=== PATIENT | female | born 1950 | race Caucasian/White ===

== ENCOUNTER → 2023-05-07 06:37 | Day surgery (SDC) | payer MEDICARE, BC, SELFPAY | LOC: GI 06:37 | PROVIDERS: ATTENDING PHYSICIAN Internal Medicine; FAMILY PHYSICIAN Physician Assistant Medical | DX: R10.13 Epigastric pain (principal); K31.7 Polyp of stomach and duodenum; K31.89 Other diseases of stomach and duodenum; Q43.8 Other specified congenital malformations of intestine | CPT/HCPCS: 43239; 88305; 88342 ==

== ENCOUNTER 2023-05-07 19:55 | Emergency (ER) | payer MEDICARE, BC, SELFPAY ==
[2023-05-07 20:00] VITALS: BP 139/91
[2023-05-07 21:58] VITALS: BP 140/80
[2023-05-07 22:19] LABS: % Basophils 1.4 % (0-2); % Eosinophils 3.3 % (0-6); % Immature Granulocytes 0.4 % (0-0.5); % Neutrophils 67.9 % (42.2-75.2); Absolute Basophils 0.2 10^3/uL (0-0.2); Absolute Eosinophils 0.4 10^3/uL (0-0.7); Absolute Lymphocytes 2.2 10^3/uL (1.2-3.4); Absolute Monocytes 0.8 10^3/uL (0.1-0.6); Absolute Neutrophils 7.4 10^3/uL (1.4-6.5); Hematocrit 39.4 % (37.0-47.0); Mean Corp Hgb Conc. 35.5 g/dL (33.0-37.0); Mean Corpuscular Hgb 29.5 pg (27.0-31.0); Mean Corpuscular Volume 82.9 fL (81.0-99.0); Mean Platelet Volume 9.4 fL (7.4-10.4); Nucleated Red Blood Cells % 0 %; Platelet Count 335 10^3/uL (130-400); Red Blood Cell Count 4.75 10^6/uL (4.20-5.40); Red Cell Dist. Width 13.4 % (11.5-14.5)
[2023-05-07 22:32] LABS: Lactic Acid 1.5 mmol/L (0.7-2.0)
[2023-05-07 22:34] LABS: ALT (SGPT) 20 U/L (0-35); AST (SGOT) 27 U/L (14-36); Alkaline Phosphatase 130 U/L (38-126); Blood Urea Nitrogen 21 mg/dl (7-17); Calcium 9.6 mg/dl (8.4-10.2); Carbon Dioxide 29 mmol/L (22-30); Chloride 103 mmol/L (98-107); Glucose 111 mg/dl (70-99); Potassium 3.3 mmol/L (3.5-5.1); Sodium 141 mmol/L (135-145); Total Bilirubin 1.2 mg/dl (0.2-1.3); eGFR > 60.00
[2023-05-07 22:35] LABS: Lipase 67 U/L (23-300)
[2023-05-07 22:43] LABS: Troponin I < 0.012 ng/ml
[2023-05-07 23:00] VITALS: BMI 43.4
--- NOTE | 2023-05-07 23:01 | ED.GENMED ---
History of Present Illness
<MANOJ Ritchie - Last Filed: 05/08/23 02:31>
General
Chief Complaint: Abdominal Pain
Source: patient
Exam Limitations: none
Time Seen by Provider: 05/07/23 22:33
Nursing documentation reviewed up to this point in time: agreed with
Travel History
Have you had any contact with someone who has COVID-19?: No
Do you have any symptoms of coronavirus? Fever > 100 degrees, chills, cough, shortness of breath, sore throat, loss of taste or smell, muscle aches, or headache?: No
History of Present Illness
History of Present Illness:
This is a 73 year old female with a PMH of gastritis, diverticulitis, GERD, HTN, and HLD, who presents to the ED c/o abdominal pain and bloating x weeks. Pt states she had an upper endoscopy this afternoon where some gastric polyps were biopsied.
She called her doctor post procedure who advised her that the pain was unlikely due to the procedure, but patient should go to the ER since the pain is so bothersome. Pt states this pain has been present for weeks and feels as though her 'stomach is
all blown up.' She constantly feels nauseous and bloated and describes the pain as 'gnawing.' She notes that 5 days ago, she also developed associated upper back pain. Her pain feels better when she is walking. Pt also adds that she has been having
increasingly 'smelly bowel movements'. The smell has become unbearable to her. She denies any fever, chills, vomiting, CP, SOB, lightheadedness, dizziness, melena, diarrhea, constipation, or greasy/fatty stools.
Pt denies any alcohol, drug or tobacco use.
Past History
<MANOJ Ritchie - Last Filed: 05/08/23 02:31>
Past History
ED Past Medical History: GERD, Hypothyroidism (Hashimotos), Psychiatric (depression) and Other (Diverticulitis, polyps, interstitial cystitis, kidney stones, Nathaniel's thyroiditis, hyperparathyroid); Negative IDDM or NIDDM
ED Past Surgical History: Cholecystectomy, Gynecological (Hysterectomy) and Other (bilateral milk duct removal of the breasts); Negative Appendectomy
Patient has exhibited threatening behavior?: No
Social History
Tobacco: Non-smoker
Alcohol: None
Drug: None
Personal:
Living: with family
Employment: Employed
Family History
Family History: Hypertension
Review of Systems
<MANOJ Ritchie - Last Filed: 05/08/23 02:31>
Review of Systems
Allergies reviewed?: Yes
All Other Systems: ROS reviewed and negative except as documented in HPI and ROS
Constitutional: Reports no symptoms; Denies fever or chills
EENT: Reports no symptoms
Respiratory: Reports no symptoms
Cardiac: Reports no symptoms; Denies chest pain
ABD/GI: Reports abdominal pain, nausea and other (abdominal bloating, upper back pain, malodorous stools); Denies vomiting, diarrhea, constipated or bloody stools
: Reports no symptoms
Musculoskeletal: Reports no symptoms
Skin: Reports no symptoms
Neurological: Reports no symptoms; Denies dizzy
Psychiatric: Reports no symptoms
Phy Exam
<MANOJ Ritchie - Last Filed: 05/08/23 02:31>
General Physical Exam
General Presentation: moderate distress (patient is actively pacing and changing positions to obtain comfort. )
General age: appears stated age
General Skin: warm and dry
General Habitus: obese
General Mental: alert
General Hydration: appears well hydrated
ENT Exam
ENT Exam: pharynx normal, normocephalic and swallowing well
Eye Exam
Eye Exam: PERRL
Cardiovascular Exam
Cardiovascular Exam: no edema, no murmur, normal peripheral pulses and tachycardia
Heart Sounds: normal
Pulmonary Exam
Pulmonary Exam: lungs clear, no respiratory distress, no rales, no crackles, no rhonchi, no wheezing and no cough
Oxygen Status: room air
Gastrointestinal Exam
Gastrointestinal Exam: soft, non distended, abnormal bowel sounds (hypoactive), tender (epigastric tenderness to palpation) and other (patient actively belching. no rebound, guarding or rigidity. No McBurney's point tenderness. )
Auscultation of Abdomen: hypoactive
Neurological Exam
Neurological Exam: alert and oriented x3
Musculoskeletal Exam
Musculoskeletal Exam: full ROM and no edema
Skin Exam
Skin Exam: normal color and warm/dry
Psychiatric Exam
Psychiatric Exam: agitated
Course
<MANOJ Ritchie - Last Filed: 05/08/23 02:31>
Orders/Labs/Results
Orders:
Orders
05/07/23 20:05
Electrocardiogram (*1) Urgent
Reason for Study: Abdominal Pain
EKG- Treatment ONCE
IV Insert/Care/Rem.- Treatment PRN
05/07/23 20:18
Complete Blood Count/With Diff Urgent
Comprehensive Metabolic Panel Urgent
Lipase Urgent
05/07/23 22:11
Lactic Acid Urgent
Troponin I Urgent
05/07/23 23:45
Iohexol [Omnipaque] 50 ml .ROUTE .STK-MED ONE
05/07/23 23:47
Iohexol [Omnipaque] See Protocol PO NOW STA
05/08/23 00:01
Mag Hydrox/Al Hydrox/Simeth [Maalox] 30 ml Phenobarb/Hyoscy/Atropine/Scop [] 10 ml Viscous Lidocaine 2% [Xylocaine Viscous Cup] 10 ml PO NOW
05/08/23 00:12
Mag Hydrox/Al Hydrox/Simeth [Maalox] 30 ml .ROUTE .STK-MED ONE
Phenobarb/Hyoscy/Atropine/Scop [] 10 ml .ROUTE .STK-MED ONE
Viscous Lidocaine 2% [Xylocaine Viscous Cup] 15 ml .ROUTE .STK-MED ONE
05/08/23 01:16
Sucralfate Suspension [Carafate Suspension] 1 gm PO NOW STA
05/08/23 01:30
CT Abd/pel W Iv And Oral Contr Urgent
Reason For Exam: abdominal pain and bloating
Abnormal Lab Results
05/07/23
20:18
WBC 11.0 H 10^3/uL
(4.8-10.8)
Absolute Neuts (auto) 7.4 H 10^3/uL
(1.4-6.5)
Absolute Monos (auto) 0.8 H 10^3/uL
(0.1-0.6)
Lymphocytes % 20.0 L %
(20.5-51.1)
Potassium 3.3 L mmol/L
(3.5-5.1)
BUN 21 H mg/dl
(7-17)
Glucose 111 H mg/dl
(70-99)
Alkaline Phosphatase 130 H U/L
(38-126)
05/07/23 20:18
05/07/23 20:18
Vital Signs
Initial and Last Documented VS:
Initial Vital Signs
Temp Pulse Resp BP Pulse Ox
97.7 F 107 22 139/91 99
05/07/23 20:00 05/07/23 20:00 05/07/23 20:00 05/07/23 20:00 05/07/23 20:00
Last Documented Vital Signs
Temp Pulse Resp BP Pulse Ox
97.7 F 88 20 146/86 96
05/07/23 20:00 05/08/23 02:16 05/08/23 02:16 05/08/23 02:16 05/08/23 02:16
<DO Jamilah Moraes Last Filed: 05/08/23 00:10>
Orders/Labs/Results
Orders:
Orders
05/07/23 20:05
Electrocardiogram (*1) Urgent
Reason for Study: Abdominal Pain
EKG- Treatment ONCE
IV Insert/Care/Rem.- Treatment PRN
05/07/23 20:18
Complete Blood Count/With Diff Urgent
Comprehensive Metabolic Panel Urgent
Lipase Urgent
05/07/23 22:11
Lactic Acid Urgent
Troponin I Urgent
05/07/23 23:45
Iohexol [Omnipaque] 50 ml .ROUTE .STK-MED ONE
05/07/23 23:47
Iohexol [Omnipaque] See Protocol PO NOW STA
05/08/23 00:01
Mag Hydrox/Al Hydrox/Simeth [Maalox] 30 ml Phenobarb/Hyoscy/Atropine/Scop [] 10 ml Viscous Lidocaine 2% [Xylocaine Viscous Cup] 10 ml PO NOW
05/08/23 00:12
Mag Hydrox/Al Hydrox/Simeth [Maalox] 30 ml .ROUTE .STK-MED ONE
Phenobarb/Hyoscy/Atropine/Scop [] 10 ml .ROUTE .STK-MED ONE
Viscous Lidocaine 2% [Xylocaine Viscous Cup] 15 ml .ROUTE .STK-MED ONE
05/08/23 01:16
Sucralfate Suspension [Carafate Suspension] 1 gm PO NOW STA
05/08/23 01:30
CT Abd/pel W Iv And Oral Contr Urgent
Reason For Exam: abdominal pain and bloating
Abnormal Lab Results
05/07/23
20:18
WBC 11.0 H 10^3/uL
(4.8-10.8)
Absolute Neuts (auto) 7.4 H 10^3/uL
(1.4-6.5)
Absolute Monos (auto) 0.8 H 10^3/uL
(0.1-0.6)
Lymphocytes % 20.0 L %
(20.5-51.1)
Potassium 3.3 L mmol/L
(3.5-5.1)
BUN 21 H mg/dl
(7-17)
Glucose 111 H mg/dl
(70-99)
Alkaline Phosphatase 130 H U/L
(38-126)
05/07/23 20:18
05/07/23 20:18
Vital Signs
Initial and Last Documented VS:
Initial Vital Signs
Temp Pulse Resp BP Pulse Ox
97.7 F 107 22 139/91 99
05/07/23 20:00 05/07/23 20:00 05/07/23 20:00 05/07/23 20:00 05/07/23 20:00
Last Documented Vital Signs
Temp Pulse Resp BP Pulse Ox
97.7 F 88 20 146/86 96
05/07/23 20:00 05/08/23 02:16 05/08/23 02:16 05/08/23 02:16 05/08/23 02:16
<MANOJ Ritchie - Last Filed: 05/08/23 02:31>
*Critical Care Note
Total Time (30-74mins, 75-104mins- exclusive of procedures): Not Applicable
ED Attending Note
<MANOJ Ritchie - Last Filed: 05/08/23 02:31>
-
Portions of this chart may have been created with voice recognition software.� Occasional wrong word or��sound alike� substitutions may have occurred due to the inherent limitations of voice recognition software.
<Solo Kramer DO - Last Filed: 05/08/23 00:10>
ED Attending Note
Patient seen and examined by attending physician: Yes
I performed the substantive portion of visit, reviewed & personally made and approve the management plan that is documented in note by myself or KARTHIKEYAN.: Yes
ED Attending Note:
This a pleasant 73-year-old female that presents with upper abdominal pain that has been present for the last few months. Patient was seen by GI today and had an upper endoscopy. She was diagnosed with polyps and she had several biopsies. She
called her tank car mechanic who advised her to come to the ER because the pain was described to be intense. Pattern Setter does not feel that the pain is due to today's procedure. Patient seems to agree since she has had similar pain for
months. Patient states that she has been taken off proton pump inhibitors as her tank car mechanic states that they have been contributing to the polyp growth. Patient denies fever, chills, chest pain, shortness of breath. Patient was seen in
conjunction with the PA student. I have reviewed and agree with the history and treatment plan presented. On my independent physical exam, patient is awake, alert, and oriented x3, minimal acute distress. No respiratory distress. Lungs are clear
to auscultation. Heart is regular rate and rhythm.
Vital signs are stable. Patient not hypoxic
Nursing note reviewed. I agree with nursing documentation up to this point in time.
Home Meds and allergies reviewed.
NUMBER AND COMPLEXITY OF PROBLEMS ADDRESSED AT THE ENCOUNTER
� Chronic conditions affecting care: Hypertension, hyperlipidemia, diverticulitis, GERD, Nathaniel's thyroiditis, uterine fibroids, renal calculi, GI bleeds,
� Acute Exacerbation and/or Progression of Chronic Illness: GERD
� Differential Diagnosis includes: GERD, DOCA lithiasis, gastritis, GI ulceration
AMOUNT AND/OR COMPLEXITY OF DATA TO BE REVIEWED AND ANALYZED
I performed an independent evaluation of the following and my interpretation is:
EKG: EKG shows sinus tachycardia rate of 101. First-degree AV block present with a FL interval of 214 ms. Left axis deviation. When compared with previous EKG dated August 15, 2022, this shows improvement.
CT:
X-rays:
Ultrasound:
Laboratory Studies: White blood cell count 11.0, lactic acid of 1.5, troponin of less than 0.012, lipase of 67
Other:
Review of other/old records: Endoscopy procedure from 05/07/2023:
Impression:� � � - Normal esophagus.
�� � � � � � � � � � � - Bile gastritis. Biopsied.
�� � � � � � � � � � � - Multiple fundic gland polyps. Biopsied.
�� � � � � � � � � � � - Nodules found in the duodenum. Biopsied.
�� � � � � � � � � � � - Random duodenal biopsies.
Recommendation:�
� - Discharge patient to home (ambulatory).
�� � � � � � � � � � � - Await pathology results.
�� � � � � � � � � � � � � � � � � � � � � � � � � � � � � � � � �
Clinical information was obtained by an independent historian:
Prescriptions/Medications Considered but not given:
Further testing considered but not performed:
RISK OF COMPLICATIONS AND/OR MORBIDITY OR MORTALITY OF PATIENT MANAGEMENT
Social determinants of health affecting care: Good Social Support
Discussion with other providers:
Escalation of care including admission/observation vs risk of discharge considered:
CRITICAL CARE NOTE:
Total Time (exclusive of procedures):
Update:
Discharge Plan
Departure
Patient Disposition: Home (Routine Discharge)
Date of Disposition: 05/08/23
Time of Disposition: 02:24
Patient with high blood pressure during this ER visit?: Yes
Discharge Problem:
Abdominal pain
Instructions: Abdominal Pain, BLOOD PRESSURE
Prescriptions:
No Action
alprazolam 1 MG tablet
1 mg PO HS
levothyroxine 88 MCG tablet
88 mcg PO DAILY
cholecalciferol (vitamin D3) 2,000 UNITS tablet
2,000 units PO DAILY
acetaminophen 325 MG tablet
650 mg PO Q6HPRN PRN (Reason: mild pain/ fever>100.5F) 0RF
hydrochlorothiazide 25 MG tablet
25 mg PO DAILY
atorvastatin 40 MG tablet
40 mg PO QPM
famotidine 40 mg tablet
40 mg PO DAILY PRN (Reason: HEARTBURN)
losartan 100 mg tablet
100 mg PO DAILY
Referrals:
[facility] [Provider Group] - Call in 1-3 days for appt
Lisa Fernandez PA-C [Family Provider] -
Activity Restrictions/Additional Instructions:
Please take your Carafate as prescribed by gastroenterology
It was a pleasure meeting you and taking part in your care. We hope for your continued healing and wellness.
Please read discharge instructions in their entirety. However, they are for general education and may not describe your exact diagnosis at discharge. Information on your ER visit and medical conditions were discussed with you along with appropriate
follow up information...
If indicated, please take your medications as instructed and indicated on discharge paperwork.
Please schedule a follow up appointment as directed. Call to schedule an appointment
Please return to the emergency department with ANY change in, persisting, or worsening of symptoms. If any of your symptoms do not improve, or persist, or become more severe within 6-12 hours, please return to the emergency department for further
care.
Please return to the emergency department if you develop a headache, neck pain/stiffness, fever greater than 100.4F, chest pain, shortness of breath, persistent nausea, vomiting, slurred speech, difficulty walking, numbness/tingling, weakness, signs
of infection or any other symptoms that are worrisome to you.
If you have any questions or concerns please do not hesitate to call the Hospital at or E-mail me directly at [email or web address]
Interventions
Interventions:
*Risk Screen - Suicide Last Done: 05/07/23 20:00
*General Assessment Last Done: 05/07/23 20:00
*Neglect/Abuse Screening Last Done: 05/07/23 20:00
*ED COVID-19 Vaccine History Last Done: 05/07/23 20:00
MS-Rtfbiw-Zskoyvujja Assessment Last Done: 05/07/23 23:06
[2023-05-07] MEDS: OMNIPAQUE 50 ML PO (23:47)
[2023-05-08] MEDS: MAALOX 55 PO (00:13)
[2023-05-08 00:55] VITALS: BP 132/78
[2023-05-08] MEDS: CARAFATE SUSPENSION 1 GM PO (02:11)
[2023-05-08 02:16] VITALS: BP 146/86
== END 2023-05-08 03:21 | disposition home or self-care (01) ==
LOC: EMR 19:55
PROVIDERS: Emergency Medicine; EMERGENCY PHYSICIAN Student in an Organized Health Care Education/Training Program; FAMILY PHYSICIAN Physician Assistant Medical
DX: R10.10 Upper abdominal pain, unspecified (principal); I10 Essential (primary) hypertension; K29.70 Gastritis, unspecified, without bleeding; K21.9 Gastro-esophageal reflux disease without esophagitis; E78.5 Hyperlipidemia, unspecified
CPT/HCPCS: 99285; 88305; 74177; 80053; 83605; 83690; 84484; 85025; 88342; 93005; Q9967

== ENCOUNTER → 2023-06-09 12:33 | Outpatient (REF) | payer MEDICARE, BC, SELFPAY ==
[2023-06-09 14:46] LABS: % Basophils 1.3 % (0-2); % Immature Granulocytes 0.6 % (0-0.5); % Lymphocytes 18.9 % (20.5-51.1); % Monocytes 5.8 % (1.7-9.3); % Neutrophils 69.4 % (42.2-75.2); Absolute Basophils 0.1 10^3/uL (0-0.2); Absolute Eosinophils 0.4 10^3/uL (0-0.7); Absolute Immature Granulocytes 0.1 10^3/uL (0-0.05); Absolute Lymphocytes 1.8 10^3/uL (1.2-3.4); Absolute Monocytes 0.6 10^3/uL (0.1-0.6); Absolute Neutrophils 6.7 10^3/uL (1.4-6.5); Hematocrit 37.1 % (37.0-47.0); Hemoglobin 12.5 g/dL (12.0-16.0); Mean Corp Hgb Conc. 33.7 g/dL (33.0-37.0); Mean Corpuscular Volume 86.1 fL (81.0-99.0); Mean Platelet Volume 10.1 fL (7.4-10.4); Nucleated Red Blood Cells % 0 %; Platelet Count 297 10^3/uL (130-400); Red Blood Cell Count 4.31 10^6/uL (4.20-5.40); Red Cell Dist. Width 13.7 % (11.5-14.5); White Blood Cell Count 9.6 10^3/uL (4.8-10.8)
[2023-06-09 15:15] LABS: Blood Urea Nitrogen 15 mg/dl (7-17); Calcium 9.3 mg/dl (8.4-10.2); Carbon Dioxide 26 mmol/L (22-30); Chloride 106 mmol/L (98-107); Glucose 98 mg/dl (70-99); Potassium 3.7 mmol/L (3.5-5.1); Sodium 140 mmol/L (135-145); eGFR > 60.00
== END ==
LOC: WDC 12:33
PROVIDERS: ATTENDING PHYSICIAN Internal Medicine
DX: Z12.31 Encounter for screening mammogram for malignant neoplasm of breast (principal); I10 Essential (primary) hypertension
CPT/HCPCS: 36415; 77063; 77067; 80048; 85025

== ENCOUNTER 2023-09-09 11:41 | Emergency (ER) | payer MEDICARE, BC, SELFPAY ==
[2023-09-09 11:52] VITALS: BP 143/84
[2023-09-09] MEDS: TORADOL 15 MG IV (13:07)
[2023-09-09] MEDS: NSS 500 IV (13:08)
[2023-09-09 13:24] LABS: % Basophils 1.4 % (0-2); % Immature Granulocytes 0.7 % (0-0.5); % Lymphocytes 18.3 % (20.5-51.1); % Monocytes 7.4 % (1.7-9.3); % Neutrophils 69.2 % (42.2-75.2); Absolute Basophils 0.2 10^3/uL (0-0.2); Absolute Eosinophils 0.3 10^3/uL (0-0.7); Absolute Immature Granulocytes 0.1 10^3/uL (0-0.05); Absolute Lymphocytes 1.9 10^3/uL (1.2-3.4); Absolute Monocytes 0.8 10^3/uL (0.1-0.6); Absolute Neutrophils 7.3 10^3/uL (1.4-6.5); Hematocrit 40.6 % (37.0-47.0); Mean Corp Hgb Conc. 34.5 g/dL (33.0-37.0); Mean Corpuscular Hgb 29.5 pg (27.0-31.0); Mean Corpuscular Volume 85.5 fL (81.0-99.0); Mean Platelet Volume 9.4 fL (7.4-10.4); Nucleated Red Blood Cells % 0 %; Platelet Count 318 10^3/uL (130-400); Red Blood Cell Count 4.75 10^6/uL (4.20-5.40); Red Cell Dist. Width 14.5 % (11.5-14.5); White Blood Cell Count 10.6 10^3/uL (4.8-10.8)
[2023-09-09 13:44] LABS: Urine Albumin Negative (Neg - Trace); Urine Bilirubin Negative (Negative); Urine Character Clear (Clear); Urine Color Yellow; Urine Glucose Negative (Negative); Urine Ketone Negative (Negative); Urine Leukocyte Negative (Negative); Urine Nitrite Negative (Negative); Urine Occult Blood Negative (Negative); Urine Specific Gravity 1.005 (<1.030); Urine Urobilinogen Negative (Neg - 1+)
[2023-09-09 13:44] LABS: ALT (SGPT) 21 U/L (0-35); AST (SGOT) 29 U/L (14-36); Albumin 4.2 g/dl (3.5-5.0); Alkaline Phosphatase 108 U/L (38-126); Blood Urea Nitrogen 16 mg/dl (7-17); Calcium 9.9 mg/dl (8.4-10.2); Carbon Dioxide 30 mmol/L (22-30); Chloride 103 mmol/L (98-107); Glucose 86 mg/dl (70-99); Lipase 125 U/L (23-300); Potassium 4.1 mmol/L (3.5-5.1); Sodium 139 mmol/L (135-145); Total Bilirubin 0.9 mg/dl (0.2-1.3); Total Protein 6.8 g/dl (6.3-8.2); eGFR > 60.00
--- NOTE | 2023-09-09 16:18 | ED.GENMED ---
History of Present Illness
General
Chief Complaint: Abdominal Symptoms
Source: patient
Exam Limitations: none
Time Seen by Provider: 09/09/23 12:15
Nursing documentation reviewed up to this point in time: agreed with
History of Present Illness
History of Present Illness:
73-year-old female with past medical history of hypertension hyperlipidemia, diverticulitis presenting to the emergency department today with concerns of ongoing discomfort to the left lower quadrant of the abdomen. Symptoms for roughly 2 weeks
took antibiotics for possible diverticulitis that concluded 3 days ago. Does have a history of diverticulitis. Denies any fevers nausea vomiting or additional concern otherwise.
Past History
Past History
ED Past Medical History: GERD, Hypothyroidism (Hashimotos), Psychiatric (depression) and Other (Diverticulitis, polyps, interstitial cystitis, kidney stones, Nathaniel's thyroiditis, hyperparathyroid); Negative IDDM or NIDDM
ED Past Surgical History: Cholecystectomy, Gynecological (Hysterectomy) and Other (bilateral milk duct removal of the breasts); Negative Appendectomy
Patient has exhibited threatening behavior?: No
Social History
Tobacco: Non-smoker
Alcohol: None
Drug: None
Personal:
Living: with family
Employment: Employed
Family History
Family History: Hypertension
Review of Systems
Review of Systems
Allergies reviewed?: Yes
All Other Systems: ROS reviewed and negative except as documented in HPI and ROS
Phy Exam
Physical Exam
Physical Exam:
GENERAL: Alert , in no apparent distress
EYE: pupils equal and reactive
NECK: Supple, no significant adenopathy.
ENT: o/p clr, mmm.
CARDIAC: Regular rate and rhythm .
LUNGS: Clear breath sounds bilaterally, no acute respiratory distress, no wheezes/rales/rhonchi
ABDOMEN: Mild reproducible discomfort to the left lower quadrant otherwise soft, without focal tenderness, no r/g, no cvat
NEUROLOGICAL: Alert and oriented, no focal neuro deficits
SKIN: Warm and dry, skin intact.
MUSCULOSKELETAL: No edema, well perfused.
PSYCH: Normal and appropriate interaction.
Course
Orders/Labs/Results
Orders:
Orders
09/09/23 12:38
CT Abd/Pel (IV only)-DH only Urgent
Comment:
Reason For Exam: llq pain hx of diverticulitis
0.9% Sodium Chloride 500 ml [Nss] 500 ml IV BOLUS
Ketorolac [Toradol] 15 mg IV NOW STA
09/09/23 13:11
Complete Blood Count/With Diff Urgent
Comprehensive Metabolic Panel Urgent
Lipase Urgent
09/09/23 13:13
Urinalysis Reflex To Culture Urgent
Date Specimen was Collected: 09/09/23
Time Specimen was Collected: 13:12
Abnormal Lab Results
09/09/23
13:11
Abs Immat Gran (auto) 0.1 H 10^3/uL
(0-0.05)
Absolute Neuts (auto) 7.3 H 10^3/uL
(1.4-6.5)
Absolute Monos (auto) 0.8 H 10^3/uL
(0.1-0.6)
Immature Gran % 0.7 H %
(0-0.5)
Lymphocytes % 18.3 L %
(20.5-51.1)
Creatinine 0.5 L mg/dL
(0.6-1.0)
09/09/23 13:11
09/09/23 13:11
Vital Signs
Initial and Last Documented VS:
Initial Vital Signs
Temp Pulse Resp BP Pulse Ox
97.5 F 85 18 143/84 96
09/09/23 11:52 09/09/23 11:52 09/09/23 11:52 09/09/23 11:52 09/09/23 11:52
Last Documented Vital Signs
Temp Pulse Resp BP Pulse Ox
97.5 F 85 18 143/84 96
09/09/23 11:52 09/09/23 11:52 09/09/23 11:52 09/09/23 11:52 09/09/23 11:52
MDM/Problems Addressed
MDM/Problems Addressed:
73-year-old female presenting to the emergency department today with concerns of ongoing lower abdominal pain. Initially presumed to be diverticulitis and took Levaquin and Flagyl. Here afebrile generally well-appearing no acute distress. Does
have minimal discomfort to palpation to the left lower quadrant. Considering this CT scan was obtained that did not show any emergent process labs unremarkable no white count normal urinalysis. Patient may have some functional bowel discomfort was
given Bentyl and advised for close GI follow-up. Return precautions given.
*Critical Care Note
Total Time (30-74mins, 75-104mins- exclusive of procedures): Not Applicable
ED Attending Note
-
Portions of this chart may have been created with voice recognition software.� Occasional wrong word or��sound alike� substitutions may have occurred due to the inherent limitations of voice recognition software.
Discharge Plan
Departure
Patient Disposition: Home (Routine Discharge)
Date of Disposition: 09/09/23
Time of Disposition: 16:18
Patient with high blood pressure during this ER visit?: No
Condition: Good
Covid-19: Not Applicable
Discharge Problem:
Abdominal pain
Instructions: Abdominal Pain
Prescriptions:
New
dicyclomine 10 mg capsule
10 mg PO QID PRN (Reason: abdominal pain) Qty: 10 0RF
No Action
alprazolam 1 MG tablet
1 mg PO HS
levothyroxine 88 MCG tablet
88 mcg PO DAILY
cholecalciferol (vitamin D3) 2,000 UNITS tablet
2,000 units PO DAILY
acetaminophen 325 MG tablet
650 mg PO Q6HPRN PRN (Reason: mild pain/ fever>100.5F) 0RF
hydrochlorothiazide 25 MG tablet
25 mg PO DAILY
atorvastatin 40 MG tablet
40 mg PO QPM
famotidine 40 mg tablet
40 mg PO DAILY PRN (Reason: HEARTBURN)
losartan 100 mg tablet
100 mg PO DAILY
Referrals:
Kamlesh Brown MD [Family Provider] -
Activity Restrictions/Additional Instructions:
You came to the emergency department today with concerns of abdominal discomfort. This could be secondary to recent inflammation. Please take Bentyl 1 tab every 4-6 hours as needed. Please stay hydrated. He can also take a fiber supplement as
well as Colace daily to help with symptoms. Please follow closely with your GI doctor. Return to the emergency department for any worsening, new or concerning symptoms.
Interventions
Interventions:
*Risk Screen - Suicide Last Done: 09/09/23 11:52
*Neglect/Abuse Screening Last Done: 09/09/23 11:52
ED- Fall Risk Assessment Last Done: 09/09/23 13:43
*ED COVID-19 Vaccine History Last Done: 09/09/23 11:52
GD-Ulceqb-Uiosnsmcqp Assessment Last Done: 09/09/23 13:43
Discharge Date and Time
Print Language: FILIPINO
[2023-09-09 16:37] VITALS: BP 137/82
== END 2023-09-09 16:39 | disposition home or self-care (01) ==
LOC: EMR 11:41
PROVIDERS: Physician Assistant; EMERGENCY PHYSICIAN Emergency Medicine; FAMILY PHYSICIAN Internal Medicine
DX: R10.30 Lower abdominal pain, unspecified (principal); I10 Essential (primary) hypertension; E78.5 Hyperlipidemia, unspecified; K57.30 Diverticulosis of large intestine without perforation or abscess without bleeding
CPT/HCPCS: 99285; 96374; 74177; 80053; 81003; 83690; 85025; Q9967

== ENCOUNTER → 2023-09-16 08:02 | Outpatient (REF) | payer MEDICARE, BC, SELFPAY | LOC: RAD 08:02 | PROVIDERS: ATTENDING PHYSICIAN Internal Medicine Gastroenterology; FAMILY PHYSICIAN Physician Assistant Medical | DX: K59.01 Slow transit constipation (principal) | CPT/HCPCS: 74018 ==

== ENCOUNTER 2023-09-21 22:57 | Inpatient (IN) | payer MEDICARE, BC, SELFPAY ==
[2023-09-21 19:20] VITALS: BP 143/97
[2023-09-21 20:14] LABS: % Basophils 0.8 % (0-2); % Eosinophils 1.7 % (0-6); % Immature Granulocytes 0.8 % (0-0.5); % Lymphocytes 10.3 % (20.5-51.1); % Monocytes 6.4 % (1.7-9.3); Absolute Basophils 0.1 10^3/uL (0-0.2); Absolute Eosinophils 0.2 10^3/uL (0-0.7); Absolute Immature Granulocytes 0.1 10^3/uL (0-0.05); Absolute Monocytes 0.6 10^3/uL (0.1-0.6); Absolute Neutrophils 7.6 10^3/uL (1.4-6.5); Hematocrit 41.9 % (37.0-47.0); Hemoglobin 14.6 g/dL (12.0-16.0); Mean Corp Hgb Conc. 34.8 g/dL (33.0-37.0); Mean Corpuscular Hgb 29.3 pg (27.0-31.0); Mean Corpuscular Volume 84.1 fL (81.0-99.0); Nucleated Red Blood Cells % 0 %; Platelet Count 293 10^3/uL (130-400); Red Blood Cell Count 4.98 10^6/uL (4.20-5.40); Red Cell Dist. Width 14.6 % (11.5-14.5); White Blood Cell Count 9.5 10^3/uL (4.8-10.8)
[2023-09-21 20:57] LABS: Blood Urea Nitrogen 24 mg/dl (7-17); Calcium 9.2 mg/dl (8.4-10.2); Carbon Dioxide 22 mmol/L (22-30); Chloride 103 mmol/L (98-107); Glucose 109 mg/dl (70-99); Lipase 38 U/L (23-300); Sodium 134 mmol/L (135-145); eGFR > 60.00
[2023-09-21 21:43] LABS: Potassium 3.5 mmol/L (3.5-5.1)
[2023-09-21] MEDS: NSS 1000 IV (21:57)
--- NOTE | 2023-09-21 22:05 | ED.GENMED ---
History of Present Illness
General
Chief Complaint: Abdominal Symptoms
Source: patient and physician
Time Seen by Provider: 09/21/23 21:07
History of Present Illness
History of Present Illness:
73-year-old female with past medical history of hypertension, hyperlipidemia, GERD, recently diagnosed diverticulitis, history of C. difficile colitis presenting to the emergency department at request of GI for evaluation of 24 hours of severe
watery diarrhea with patient stating she has had at least 60 episodes of diarrhea today. She notes that since getting to the hospital she has at least had 4 episodes and describes it to be watery, malodorous and similar to when she had C. difficile
in the past. Patient had been on Levaquin initially for her diverticulitis but states due to nausea and vomiting this was switched to ciprofloxacin and Flagyl. She finished this reportedly 1 week ago. She denies any fevers, chills, rigors, known
sick contacts or recent travel. She notes some lower abdominal cramping. No other concerns at this time.
Past History
Past History
ED Past Medical History: GERD, HTN, Hypercholesterolemia, Hypothyroidism ([place]), Psychiatric (depression) and Other (Diverticulitis, polyps, interstitial cystitis, kidney stones, Nathaniel's thyroiditis, hyperparathyroid); Negative IDDM or
NIDDM
ED Past Surgical History: Cholecystectomy, Gynecological (Hysterectomy) and Other (bilateral milk duct removal of the breasts); Negative Appendectomy
Patient has exhibited threatening behavior?: No
Social History
Tobacco: Non-smoker
Alcohol: None
Drug: None
Personal:
Living: with family
Employment: Employed
Family History
Family History: Hypertension
Review of Systems
Review of Systems
All Other Systems: ROS reviewed and negative except as documented in HPI and ROS
Phy Exam
Physical Exam
Physical Exam:
GENERAL: Alert , appears quite uncomfortable, pale
EYE: clear conjunctiva b/l
HEAD: NCAT
ENT: o/p clr, mmm.
CARDIAC: Regular rate and rhythm .
LUNGS: Clear breath sounds bilaterally, no acute respiratory distress, no wheezes/rales/rhonchi
ABDOMEN: Soft, generalized lower abdominal tenderness, no r/g, no cvat
NEUROLOGICAL: Alert and oriented
SKIN: Warm and dry, skin intact.
MUSCULOSKELETAL: well perfused.
PSYCH: Normal and appropriate interaction.
Scores
Heart Failure Risk
Heart Failure Risk Score: Not Applicable
Heart Score for Chest Pain Patients
STEMI patient?: Not applicable
Withdrawal Assessment of Alcohol
Withdrawal Assessment Completed?: Not applicable
Course
Orders/Labs/Results
Orders:
Orders
09/21/23 20:07
Basic Metabolic Panel Urgent
Complete Blood Count/With Diff Urgent
Lipase Urgent
09/21/23 21:13
Giardia/Cryptosporidium Ag Urgent
STEPHANIE Source: Feces/Stool
Specimen Description:
Date Specimen was Collected: 09/21/23
Time Specimen was Collected: 21:08
STOOL [C difficile Antigen & Toxins] Urgent
STEPHANIE Source: Feces/Stool
Specimen Description:
Date Specimen was Collected: 09/21/23
Time Specimen was Collected: 21:08
Stool Culture Urgent
STEPHANIE Source: Feces/Stool
Specimen Description:
Date Specimen was Collected: 09/21/23
Time Specimen was Collected: 21:08
09/21/23 21:20
Potassium Urgent
09/21/23 21:55
0.9% Sodium Chloride 1000 ml [Nss] 1,000 ml IV BOLUS
09/21/23 22:04
Morphine Sulfate 4 mg IV NOW STA
09/21/23 22:24
Admit/Transfer Patient As Directed
Co-Sign Provider:
Level of Care: Inpatient admission
Assign to:: Medical/Surgical
Physician / Group: mayo
Diagnosis: watery diarrhea
Reason for Hospitalization: watery diarrhea
Expected length of stay greater than two midnights?: Yes
ELOS- Estimated Length of Stay in days: 2
I certify the patient meets the requirements for IP care: Yes
09/21/23 22:25
Code Status As Directed
Resuscitation Status: Full Code
Abnormal Lab Results
09/21/23
20:07
RDW 14.6 H %
(11.5-14.5)
Abs Immat Gran (auto) 0.1 H 10^3/uL
(0-0.05)
Absolute Neuts (auto) 7.6 H 10^3/uL
(1.4-6.5)
Absolute Lymphs (auto) 1.0 L 10^3/uL
(1.2-3.4)
Immature Gran % 0.8 H %
(0-0.5)
Neutrophils % 80.0 H %
(42.2-75.2)
Lymphocytes % 10.3 L %
(20.5-51.1)
Sodium 134 L mmol/L
(135-145)
BUN 24 H mg/dl
(7-17)
Glucose 109 H mg/dl
(70-99)
09/21/23 20:07
09/21/23 21:20
Vital Signs
Initial and Last Documented VS:
Initial Vital Signs
Temp Pulse Resp BP Pulse Ox
97.8 F 128 18 143/97 98
09/21/23 19:20 09/21/23 19:20 09/21/23 19:20 09/21/23 19:20 09/21/23 19:20
Last Documented Vital Signs
Temp Pulse Resp BP Pulse Ox
97.8 F 110 20 143/97 95
09/21/23 19:20 09/21/23 21:30 09/21/23 21:30 09/21/23 19:20 09/21/23 21:30
MDM/Problems Addressed
Differential Diagnosis Includes:
C. difficile colitis, antibiotic associated colitis, diverticulitis, electrolyte disturbance
MDM/Problems Addressed:
73-year-old female presenting to the emergency department for evaluation at the request of her GI physician after patient has had numerous episodes of watery diarrhea in the setting of recently being treated for diverticulitis. Patient appears
quite uncomfortable, has had multiple watery bowel movements since being in the emergency department in addition to the numerous amounts at home. Will send stool studies. GI is already aware patient is in the ER. Anticipate admission given amount
of diarrhea combined with patient's current presentation and past medical history.
*Pulse Oximetry
Patient hypoxic: no
*Critical Care Note
Total Time (30-74mins, 75-104mins- exclusive of procedures): Not Applicable
Data Reviewed
Review of Other/Old Records Reveals: Labs, Records and Radiology Studies
Source: patient, records and physician
Patient Management
Discussion with other providers: Hospitalist
Escalation/DeEscalation of care consider admission/obs:
Patient with mild prerenal azotemia. She was given IV fluids but remains mildly tachycardic. Will admit for continued fluid administration and monitoring as well as stool culture trending. Hospitalist team is aware and accepts for continued
evaluation and treatment.
ED Attending Note
-
Portions of this chart may have been created with voice recognition software.� Occasional wrong word or��sound alike� substitutions may have occurred due to the inherent limitations of voice recognition software.
Discharge Plan
Departure
Patient Disposition: Admit
Date of Disposition: 09/21/23
Time of Disposition: 22:05
Presentation/result/management discussed w/ accepting MD/DO: Hospitalist
Discharge Problem:
Diarrhea, Dehydration
Prescriptions:
No Action
alprazolam 1 MG tablet
1 mg PO HS
Patient Comments:
09/21/2023: last filled 09/21/23, 90 tabs for 90 days from [facility]
levothyroxine 88 MCG tablet
88 mcg PO DAILY
acetaminophen 325 MG tablet
650 mg PO Q6HPRN PRN (Reason: mild pain/ fever>100.5F) 0RF
hydrochlorothiazide 25 MG tablet
25 mg PO DAILY
atorvastatin 40 MG tablet
40 mg PO QPM
Pepcid Complete 10-800-165 mg Tablet,Chewable
1 tab PO HS
zolpidem 6.25 mg tablet,ext release multiphase
6.25 mg PO HSPRN PRN (Reason: sleep)
Patient Comments:
09/21/2023: last filled 09/21/23, 30 tabs for 30 days from [id number]
cholecalciferol (vitamin D3) 50 mcg (2,000 unit) Tablet
50 mcg PO DAILY
dexlansoprazole 60 mg capsule,biphase delayed releas
60 mg PO DAILY
Referrals:
Kamlesh Brown MD [Family Provider] -
Interventions
Interventions:
*Risk Screen - Suicide Last Done: 09/21/23 19:20
*General Assessment Last Done: 09/21/23 19:20
*Neglect/Abuse Screening Last Done: 09/21/23 19:20
VL-Awfjyw-Pjywuhorup Assessment Last Done: 09/21/23 20:08
Discharge Date and Time
Print Language: NEPALI
--- NOTE | 2023-09-21 22:26 | HPS.HSE ---
Family Physician
-
Family Physician: Kamlesh Brown MD
Chief Complaint
-
diarrhea
History of Present Illness
73-year-old female past medical history of diverticulosis, distant history of diverticulitis, history of C. difficile in 1993, hypertension, interstitial cystitis, GERD, constipation, anxiety/depression, hyperlipidemia, hypothyroidism presenting for
large amount of watery diarrhea over the past day. She is having diffuse abdominal discomfort and bloating. She denies any fevers or chills. She has nausea without vomiting.
She states that she has been having abdominal bloating and nausea for the past several months and recently started seeing GI. She was treated with Levaquin and Flagyl for abdominal pain thought to be secondary to diverticulitis which was switched
to ciprofloxacin and Flagyl due to age which she finished approximately 10 days ago. She went to the emergency room on 09/[address] abdomen pelvis which did not show evidence of diverticulitis at that time. She eventually followed up with GI
and had abdominal x-ray 5 days ago without any notable findings. She denies weight loss.
She denies smoking or alcohol use or marijuana.
Medical History
Past Medical History
Past Medical History: Reports Other (diverticulosis, distant history of diverticulitis, history of C. difficile in 1993, hypertension, interstitial cystitis, GERD, constipation, anxiety/depression, hyperlipidemia, hypothyroidism )
Past Surgical History: Reports Other (Cholecystectomy, Gynecological (Hysterectomy) and Other (bilateral milk duct removal of the breasts))
Social History
Tobacco: Non-smoker
Alcohol: None
Drug: None
Family History
Family History: Not pertinent
Allergies / Home Medications
Allergies reflects when Allergies were last updated in [employer]
Home Medications with original date entered in [employer]
Allergy/Medication List:
Allergies
Allergy/AdvReac Type Severity Reaction Status Date / Time
doxycycline Allergy Unknown Verified 09/09/23 11:52
metoclopramide HCl Allergy Unknown Verified 09/09/23 11:52
[From Reglan]
Penicillins Allergy Rash Verified 09/09/23 11:52
Home Medications
alprazolam 1 mg tablet 1 mg PO HS Mental Health/Anxiety 11/01/14
levothyroxine 88 mcg tablet 88 mcg PO DAILY Thyroid 03/12/16
cholecalciferol (vitamin D3) 50 mcg (2,000 unit) tablet 2,000 units PO DAILY Supplement 03/05/19
acetaminophen 325 mg tablet 650 mg (2 x 325 mg) PO Q6HPRN PRN mild pain/ fever>100.5F 03/06/19
atorvastatin 40 mg tablet 40 mg PO QPM High cholesterol 10/27/20
hydrochlorothiazide 25 mg tablet 25 mg PO DAILY Blood pressure 10/27/20
famotidine 40 mg tablet 40 mg PO DAILY PRN HEARTBURN 07/11/22
losartan 100 mg tablet 100 mg PO DAILY Blood pressure 07/11/22
dicyclomine 10 mg capsule 10 mg PO QID PRN abdominal pain #10 caps 09/09/23
Review of Systems
-
History Source: Patient
A 12 point ROS was completed and negative except as noted: Yes
Constitutional: Reports No Symptoms
EENT: Reports No Symptoms
Respiratory: Reports No Symptoms
Cardiac: Reports No Symptoms
Abdomen/GI: Reports See HPI
: Reports No Symptoms
Musculoskeletal: Reports No Symptoms
Skin: Reports No Symptoms
Neurological: Reports No Symptoms
Endocrine: Reports No Symptoms
Hematologic/Lymphatic: Reports No Symptoms
Psych: Reports No Symptoms
Physical Exam
Vital Signs
Vital Signs
Temp Pulse Resp BP Pulse Ox
97.8 F 110 20 143/97 95
09/21/23 19:20 09/21/23 21:30 09/21/23 21:30 09/21/23 19:20 09/21/23 21:30
Physical Exam
General: Well Developed, Well Nourished and No Apparent Distress
HEENT: NormoCephalic, Moist mucous membranes and Atraumatic
Respiratory: Clear
Cardiac: S1/S2 and Regular Rhythm; No Murmur or Rub
GI: Soft, Normal Bowel Sounds, Tender and Distended; No Organomegaly
Rectal: Deferred by Provider
Musculoskeletal: No Clubbing, No Cyanosis and No Edema
Skin: No Rash
Neuro: Nonfocal/grossly intact
Laboratory Results
-
09/21/23 20:07
09/21/23 21:20
Laboratory Results
Total Bilirubin Cancelled 09/21/23 20:07
AST Cancelled 09/21/23 20:07
ALT Cancelled 09/21/23 20:07
Alkaline Phosphatase Cancelled 09/21/23 20:07
Lipase 38 U/L (23-300) 09/21/23 20:07
Data Reviewed
-
Lab Data: Labs Reviewed by me
Old Records: Reviewed
Impression/Plan
-
IMPRESSION:
PLAN:
# Profuse watery diarrhea high suspicion for C. difficile, given recent antibiotics
-N.p.o.
-Stool culture, Giardia/Cryptosporidium, C. difficile pending
-IV fluids
-Zofran/Dilaudid as needed
-GI consulted
# Ongoing chronic abdominal bloating/nausea
-Unclear etiology
-Seeing GI as outpatient
-continue dicyclomine
History of C. difficile in 1993
History of diverticulosis/diverticulitis
Essential hypertension
-hold HCTZ
Interstitial cystitis
GERD
-continue pepcid
History of constipation
Anxiety/depression
-continue xanax
Hyperlipidemia
-continue statin
Hypothyroidism
-continue levothyroxine
Full code
DVT prophylaxis�heparin
N.p.o.
[2023-09-21] MEDS: MORPHINE SULFATE 4 MG IV (22:46)
[2023-09-21 22:49] VITALS: BP 145/87
[2023-09-21 23:13] VITALS: BP 116/68
[2023-09-22 00:03] VITALS: BMI 40.6
[2023-09-22 00:16] VITALS: BP 129/86
[2023-09-22] MEDS: NSS 1000 IV ×3 (00:21→20:28)
[2023-09-22] MEDS: XANAX 1 MG PO ×2 (00:50→21:44)
[2023-09-22] MEDS: SYNTHROID 88 MCG PO (05:30)
[2023-09-22 07:00] VITALS: BP 114/60
[2023-09-22 07:34] LABS: Urine Albumin Negative (Neg - Trace); Urine Bilirubin Negative (Negative); Urine Character Clear (Clear); Urine Color Yellow; Urine Glucose Negative (Negative); Urine Ketone Negative (Negative); Urine Leukocyte 1+ (Negative); Urine Nitrite Negative (Negative); Urine Occult Blood Negative (Negative); Urine Specific Gravity 1.025 (<1.030); Urine Urobilinogen Negative (Neg - 1+)
[2023-09-22 07:54] LABS: Urine Bacteria Few (Negative)
[2023-09-22] MEDS: HEPARIN 5000 UNITS SC ×2 (08:48→20:18)
--- NOTE | 2023-09-22 09:16 | W.PN.HOSP.TC ---
Addendum entered and electronically signed by Jon Ybarra MD 09/22/23 17:40:
I saw and evaluated the patient. I reviewed the resident�s note and agree with findings and plan as documented in the resident�s note.
Patient continues significant diarrhea and almost going in and out of bathroom multiple times. Denies any nausea or vomiting. Afebrile. Some blood noticed in stool after bowel movement positive history of hemorrhoids as well
1. Acute diarrhea
C. difficile antigen positive, toxin negative
-patient with new onset of frequent small bowel movements. Patient stated of having memory issues and cannot remember if have recurrent issues like this in the past. No previous GI evaluation.
-Watery diarrhea small amount some blood reported after bowel movement yesterday -presumed to be hemorrhoidal
-Abd xr showing mod stool burden
-Patient need to go to bathroom multiple times, rectal trumpet placed.
-Await stool culture/WBC
-Monitor electrolytes for any replacement k/mg etc.
-Hold on starting any antibiotic
-GI involved for further evaluation
Original Note:
Today's Communication/Plan
-
Continue to monitor as patient having diffuse diarrhea
Assessment / Plan
Assessment / Plan
Impression: 73-year-old female with a recent course of antibiotics 10 days ago presents with diffuse watery diarrhea, explosive nonbloody. Patient states she feels it is similar to the C. difficile episode she had in the past. C. difficile still
pending, likely C. difficile.
PLAN:
# Profuse watery diarrhea
-C. difficile studies were positive for colonization but negative for toxin
-Patient is a carrier not actively infected
-N.p.o.
-Stool culture, Giardia/Cryptosporidium, C. difficile pending
-IV fluids
-Zofran/Dilaudid as needed
-GI consulted
# Ongoing chronic abdominal bloating/nausea
-Unclear etiology
-Seeing GI as outpatient
-continue dicyclomine
Essential hypertension
-hold HCTZ
GERD
-continue pepcid
Anxiety/depression
-continue xanax
Hyperlipidemia
-continue statin
Hypothyroidism
-continue levothyroxine
Full code
DVT prophylaxis�heparin
N.p.o.
Data:
PMH and PSH
Past Medical History: Reports Other (diverticulosis, distant history of diverticulitis, history of C. difficile in 1993, hypertension, interstitial cystitis, GERD, constipation, anxiety/depression, hyperlipidemia, hypothyroidism )
Past Surgical History: Reports Other (Cholecystectomy, Gynecological (Hysterectomy) and Other (bilateral milk duct removal of the breasts))
Anticipated Discharge: 24 - 48 hours
Subjective/Interval History
-
Date of Service: September 22, 2023
Multiple episodes of watery diarrhea overnight, patient says they are frequent and explosive
Objective Data
-
Labs:
Laboratory Results
09/21/23 09/22/23
21:20 09:02
WBC Pending
Hgb Pending
Hct Pending
Plt Count Pending
Sodium Pending
Potassium 3.5 Pending
Chloride Pending
Carbon Dioxide Pending
BUN Pending
Creatinine Pending
Glucose Pending
Calcium Pending
Total Bilirubin Pending
AST Pending
ALT Pending
Alkaline Phosphatase Pending
Vital Signs:
Vital Signs
Temp Pulse Resp BP Pulse Ox
97.1 F 86 18 114/60 92
09/22/23 07:00 09/22/23 07:00 09/22/23 07:00 09/22/23 07:00 09/22/23 07:00
I&O
09/21/23 09/22/23 09/23/23
06:59 06:59 06:59
Intake Total 350 / 350
Output Total 100 / 100
Balance 250 / 250
Review of Systems
-
History Source: Patient
Constitutional: Reports No Symptoms
Respiratory: Reports No Symptoms
Cardiac: Reports No Symptoms
Abdomen/GI: Reports Abdominal Pain, Nausea, Vomiting, Diarrhea, Pain and Bloated; Denies Bloody Stools, Black Stools or Hematemesis
Genitourinary: Reports No Symptoms
Musculoskeletal: Reports No Symptoms
Skin: Reports No Symptoms
Neuro: Reports No Symptoms
Physical Exam
-
General: Well Developed, Well Nourished and Conversant
Respiratory: Clear to Auscultation
Cardiac: Regular Rhythm and S1/S2
GI: Soft, Nontender, Distended and Other (Hyperactive bowel sounds)
Musculoskeletal: No Edema
Skin: Warm and Dry
Neuro: Awake, Alert, Oriented and AO x 3
Psych: Calm and Intact Judgement/Insight
Data Reviewed
-
Labs: Labs Reviewed by me and Discussed with Physician
[2023-09-22 09:25] LABS: % Immature Granulocytes 0.9 % (0-0.5); % Lymphocytes 18.4 % (20.5-51.1); % Monocytes 9.7 % (1.7-9.3); Absolute Basophils 0.1 10^3/uL (0-0.2); Absolute Eosinophils 0.1 10^3/uL (0-0.7); Absolute Immature Granulocytes 0.1 10^3/uL (0-0.05); Absolute Lymphocytes 1.1 10^3/uL (1.2-3.4); Absolute Monocytes 0.6 10^3/uL (0.1-0.6); Hematocrit 38.8 % (37.0-47.0); Hemoglobin 13.6 g/dL (12.0-16.0); Mean Corp Hgb Conc. 35.1 g/dL (33.0-37.0); Mean Corpuscular Volume 85.7 fL (81.0-99.0); Mean Platelet Volume 9.4 fL (7.4-10.4); Nucleated Red Blood Cells % 0 %; Platelet Count 266 10^3/uL (130-400); Red Blood Cell Count 4.53 10^6/uL (4.20-5.40); Red Cell Dist. Width 14.9 % (11.5-14.5); White Blood Cell Count 5.9 10^3/uL (4.8-10.8)
--- NOTE | 2023-09-22 09:42 | CON.GI ---
Addendum entered and electronically signed by Deneen Pascual DO 09/22/23 16:34:
Patient seen and examined with resident. I agree with her note with my additions below
Lisa is a 73-year-old female followed by Dr. Petty as an outpatient who has a history of chronic abdominal discomfort, cramping, bloating who last year started having more constipation. Since January she has experienced this significant
bloating and abdominal discomfort and recently saw Dr. Petty as an outpatient and was placed on a bowel regimen to help with her constipation. She was taking intermittent senna and stool softeners which would produce a bowel movement. She also
tried things like MiraLAX but felt more bloated. She says she gets physical distention.
This episode on Thursday she started having a large amount of watery diarrhea that started around 3 AM on 09/21/2023. Says multiple episodes of fecal urgency and watery nonbloody diarrhea feeling the constant urge to go even with accidents. Her stools
are yellow loose watery and now she has a rectal trumpet. There is no overt blood. She has some lower abdominal discomfort. She had an x-ray that ruled out fecal impaction or overflow diarrhea.
I did review multiple CT studies dating back to 2019. She has had multiple abdomen pelvis CTs for abdominal pain none of which showed diverticulitis.
This episode is different and is not just abdominal pain but the constant urgency and bowel movements
# Fecal urgency, fecal incontinence with multiple episodes of nonbloody yellow loose stools
-- Patient is C. difficile antigen positive but toxin negative, Cryptosporidium and Giardia were negative, stool culture is pending
-- Check stool WBC. She has no leukocytosis, no fever. Minimal to no nausea. Check norovirus
--If stools do not slow down, would consider empiric treatment for C. difficile based on her clinical presentation
--Replete electrolytes, IV fluids and okay to start clear liquid diet
Original Note:
Documented by User: Enriqueta Montes MD, Resident 09/22/23 13:26
Consultation
-
Date/Time Consultation Performed: 09/22/23
Reason for Consultation: diarrhea
Medical History
Chief Complaint / HPI
Chief Complaint: diarrhea
History of Present Illness:
73 year old female with past medical history of diverticulosis, distant history of diverticulitis, distant history of c diff (1993), hypertension, interstitial cystitis, GERD, constipation, anxiety/depression, hyperlipidemia, hypothyroidism,
hemorrhoids, who presented to the ED 09/21/23 for large amount of watery diarrhea that started yesterday around 3AM. She reports 70-80 episodes of diarrhea, and denies bloody or black stools. She also reports abdominal pain, cramping, and nausea. She
denies vomiting, and reports the last time she ate was Thursday around 4pm. She experienced mild lightheadedness prior to coming to ED, which she attributes to not eating. She denies fevers, chills, chest pain, shortness of breath, pain/difficulty
with swallowing, or unintentional weight loss. She denies reflux as her GERD is well controlled with dexalin and pepcid complete. She reports occasional constipation for a few days that is relieved with senna, but otherwise reports solid, easy to
pass bowel movements daily. She is unsure of when her last bowel movement was prior to onset of diarrhea; recent xray showed moderate stool burden but she did not initiate magnesium citrate at home due to her new diarrhea. She has been experiencing
GI complaints since about January: she reports daily constant GI symptoms, including a combination of bloating, gas, cramps, and pain which changes in intensity and location without triggers/ameliorating factors. She was recently treated with
antibiotics for suspected diverticulitis, which she finished about 10 days ago.
Past Medical History
Past Medical History: GERD, HTN, Hypothyroidism, Psychiatric (anxiety/depression) and Other (diverticulosis, diverticulitis, constipation, Cdiff (1993))
Past Surgical History: Cholecystectomy and Gynecological (hysterectomy)
Social History
Tobacco: Non-Smoker
Alcohol: None
Drug: None
Living: Alone
Family History
Family History: Cancer (colon cancer (father))
Allergies / Home Medications
Allergy/AdvReac Type Severity Reaction Status Date / Time
doxycycline Allergy Unknown Verified 09/09/23 11:52
metoclopramide HCl Allergy Unknown Verified 09/09/23 11:52
[From Reglan]
Penicillins Allergy Rash Verified 09/09/23 11:52
�Medication �Instructions �Recorded
alprazolam 1 mg tablet 1 mg PO HS Mental Health/Anxiety 11/01/14
levothyroxine 88 mcg tablet 88 mcg PO DAILY Thyroid 03/12/16
acetaminophen 325 mg tablet 650 mg (2 x 325 mg) PO Q6HPRN PRN 03/06/19
mild pain/ fever>100.5F
atorvastatin 40 mg tablet 40 mg PO QPM High cholesterol 10/27/20
hydrochlorothiazide 25 mg tablet 25 mg PO DAILY Blood pressure 10/27/20
cholecalciferol (vitamin D3) 50 50 mcg PO DAILY 09/21/23
mcg (2,000 unit) tablet
dexlansoprazole 60 mg 60 mg PO DAILY 09/21/23
capsule,biphase delayed release
famotidine-Ca carb-mag hydrox 10 1 tab PO HS 09/21/23
mg-800 mg-165 mg chewable tablet
(Pepcid Complete)
zolpidem 6.25 mg tablet,extended 6.25 mg PO HSPRN PRN sleep 09/21/23
release,multiphase
Review of Systems
-
All other systems: A 12 pt ROS was Negative except as stated above in HPI
Vital Signs
Temp Pulse Resp BP Pulse Ox
97.1 F 86 18 114/60 92
09/22/23 07:00 09/22/23 07:00 09/22/23 07:00 09/22/23 07:00 09/22/23 07:00
Physical Exam
Exam
General: Resting in bed, no acute distress. Appears uncomfortable.
Heart: Regular rate and rhythm.
Lungs: Nonlabored breathing. Lungs clear and equal to auscultation bilaterally. Intermittent coughing.
Abdomen: Normal bowel sounds present. Abdomen obese, soft, nondistended. Mild tenderness to palpation, most prominent in lower abdomen and LUQ. No rebound, rigidity, guarding.
Results
WBC 5.9 10^3/uL (4.8-10.8) 09/22/23 09:02
Hgb 13.6 g/dL (12.0-16.0) 09/22/23 09:02
Hct 38.8 % (37.0-47.0) 09/22/23 09:02
MCV 85.7 fL (81.0-99.0) 09/22/23 09:02
Plt Count 266 10^3/uL (130-400) 09/22/23 09:02
Absolute Neuts (auto) 4.0 10^3/uL (1.4-6.5) 09/22/23 09:02
Sodium 134 mmol/L (135-145) L 09/21/23 20:07
Potassium 3.5 mmol/L (3.5-5.1) 09/21/23 21:20
Chloride 103 mmol/L (98-107) 09/21/23 20:07
Carbon Dioxide 22 mmol/L (22-30) 09/21/23 20:07
BUN 24 mg/dl (7-17) H 09/21/23 20:07
Creatinine 0.6 mg/dL (0.6-1.0) 09/21/23 20:07
Calcium 9.2 mg/dl (8.4-10.2) 09/21/23 20:07
Total Bilirubin Cancelled 09/21/23 20:07
AST Cancelled 09/21/23 20:07
ALT Cancelled 09/21/23 20:07
Alkaline Phosphatase Cancelled 09/21/23 20:07
Lipase 38 U/L (23-300) 09/21/23 20:07
Diagnostic Image Results:
Abdomen xray 09/16/23:
IMPRESSION:
Nonobstructive bowel gas pattern.
Moderate volume widespread colonic stool.
Abdomen/Pelvis CT 09/09/23:
IMPRESSION: Numerous colonic diverticula with no CT evidence for diverticulitis.
4 mm well-defined nodule within the right middle lobe, stable dating back to CT examination of March 06, 2019, compatible with benign pulmonary nodule.
Bilateral renal cysts.
Prior GI Procedures:
EGD:
04/2023 ([facility])- normal esophagus, erythema in the antrum and body, no H pylori or celiac disease, multiple benign fundic gland polyps and duodenal nodules
05/2019
01/2016
07/2013
09/2008
Colonoscopy:
10/2022 ([facility])- tubular adenoma, diverticulosis
10/2016- hyperplastic polyp, random biopsy negative for colitis
08/2012- hyperplastic polyps
08/2008- random biopsy negative for colitis
Assessment / Plan
-
73 year old female with past medical history of diverticulosis, distant history of diverticulitis, distant history of c diff (1993), hypertension, interstitial cystitis, GERD, constipation, anxiety/depression, hyperlipidemia, hypothyroidism,
hemorrhoids, who presented to ED for diarrhea and abdominal pain.
Diarrhea:
- Suspect this is overflow diarrhea given patient's history of constipation with abdominal xray 09/16/23 demonstrating moderate stool burden, and patient did not start magnesium citrate as recommended by outpatient GI.
- Cdiff antigen positive and toxin negative is consistent with being a carrier of nontoxigenic strain rather than acute infection with toxigenic strain. Cryptosporidium negative, giardia negative.
- Stool cultures pending. Check TSH. Will follow up on results.
- Will get abdominal xray to evaluate stool burden. Further recommendations to come.
-
-
Thank you for consultation and allowing me to participate in the patient's care. Please call the relocation services specialist GI physician during the after hours with any questions or concerns.

Documented by User: Deneen Pascual DO 09/22/23 16:26
Data Reviewed
-
Radiology: Report Reviewed by me
Old Records: Reviewed
[2023-09-22 10:26] LABS: ALT (SGPT) 19 U/L (0-35); AST (SGOT) 32 U/L (14-36); Albumin 3.6 g/dl (3.5-5.0); Alkaline Phosphatase 102 U/L (38-126); Blood Urea Nitrogen 17 mg/dl (7-17); Calcium 8.3 mg/dl (8.4-10.2); Carbon Dioxide 22 mmol/L (22-30); Chloride 106 mmol/L (98-107); Estimated Creatinine Clearance 111 ml/min; Glucose 83 mg/dl (70-99); Potassium 3.3 mmol/L (3.5-5.1); Sodium 136 mmol/L (135-145); Total Bilirubin 1.5 mg/dl (0.2-1.3); eGFR > 60.00
[2023-09-22 13:01] LABS: TSH 1.61 uIU/ml (0.47-4.68)
[2023-09-22 15:00] VITALS: BP 104/75
--- NOTE | 2023-09-22 15:28 | CM ---
Patient seen bedside.
IA completed.
Patient lives alone in an apartment with elevator access.
Independent prior to admission without assistive devices.
Patient drives.
Patient has not had VN or skilled rehab in the past.
Patient denies home care needs.
PCP :Dr Barrett
Pharmacy: [facility]
Plan: home no needs.
--- NOTE | 2023-09-22 15:46 | PN.CDI ---
CDI
- -
CDI:
Physician Documentation Request
Admit Date: 09/21/23 22:57
Dear Doctor Tate,
Please review the following and provide your response in the progress notes.
Clinical Indicators:
Selected Entries
09/22/23
00:03
Body Mass Index (BMI) 40.6
Based on the above and your clinical assessment, please provide an associated diagnosis, related to the documented BMI...:
BMI > 40, obesity
BMI is not significant
Other (please specify)
BMI > or = to 40
Overweight
Obesity:
Due to excess calories
Drug induced
Due to other cause
Severe or morbid obesity:
With alveolar hypoventilation (Obesity hypoventilation syndrome)
Without alveolar hypoventilation
Use of terms such as suspected, likely, concern for, or probable (associated with a specific diagnosis that is being evaluated, monitored, or treated as if it exists) are acceptable and can be coded in the inpatient setting, when documented at the
time of discharge.
Thank you,
Halima Nixon RN BSN CCDS
CDI Specialist
please contact via tiger text
Please use your independent medical judgment in providing your response.
[2023-09-22] MEDS: LIPITOR 40 MG PO (17:32)
[2023-09-23 00:13] VITALS: BP 108/69
[2023-09-23] MEDS: DILAUDID 0.5 MG IV ×2 (00:38→10:04)
[2023-09-23] MEDS: SYNTHROID 88 MCG PO (05:28)
[2023-09-23] MEDS: NSS 1000 IV ×2 (05:43→17:22)
[2023-09-23 07:30] VITALS: BP 107/66
[2023-09-23 08:43] LABS: % Basophils 0.8 % (0-2); % Eosinophils 3.4 % (0-6); % Immature Granulocytes 0.8 % (0-0.5); % Lymphocytes 18.2 % (20.5-51.1); % Monocytes 9.9 % (1.7-9.3); % Neutrophils 66.9 % (42.2-75.2); Absolute Basophils 0.1 10^3/uL (0-0.2); Absolute Eosinophils 0.3 10^3/uL (0-0.7); Absolute Immature Granulocytes 0.1 10^3/uL (0-0.05); Absolute Lymphocytes 1.3 10^3/uL (1.2-3.4); Absolute Monocytes 0.7 10^3/uL (0.1-0.6); Absolute Neutrophils 4.9 10^3/uL (1.4-6.5); Hematocrit 35.9 % (37.0-47.0); Hemoglobin 12.7 g/dL (12.0-16.0); Mean Corp Hgb Conc. 35.4 g/dL (33.0-37.0); Mean Corpuscular Hgb 30.5 pg (27.0-31.0); Mean Corpuscular Volume 86.3 fL (81.0-99.0); Mean Platelet Volume 9.4 fL (7.4-10.4); Nucleated Red Blood Cells % 0 %; Platelet Count 240 10^3/uL (130-400); Red Blood Cell Count 4.16 10^6/uL (4.20-5.40); Red Cell Dist. Width 14.9 % (11.5-14.5); White Blood Cell Count 7.4 10^3/uL (4.8-10.8)
[2023-09-23] MEDS: HEPARIN 5000 UNITS SC ×2 (08:58→19:53)
[2023-09-23 09:52] LABS: ALT (SGPT) 22 U/L (0-35); AST (SGOT) 35 U/L (14-36); Albumin 3.3 g/dl (3.5-5.0); Alkaline Phosphatase 100 U/L (38-126); Blood Urea Nitrogen 11 mg/dl (7-17); Calcium 8.6 mg/dl (8.4-10.2); Carbon Dioxide 21 mmol/L (22-30); Chloride 110 mmol/L (98-107); Estimated Creatinine Clearance 111 ml/min; Glucose 77 mg/dl (70-99); Potassium 3.2 mmol/L (3.5-5.1); Sodium 139 mmol/L (135-145); Total Bilirubin 1.3 mg/dl (0.2-1.3); Total Protein 5.6 g/dl (6.3-8.2); eGFR > 60.00
[2023-09-23] MEDS: FIRVANQ 125 MG PO ×3 (11:47→23:46)
[2023-09-23] MEDS: KCL 20 MEQ PO (11:47)
--- NOTE | 2023-09-23 13:38 | W.PN.HOSP.TC ---
Addendum entered and electronically signed by Jon Ybarra MD 09/23/23 15:11:
I saw and evaluated the patient. I reviewed the resident�s note and agree with findings and plan as documented in the resident�s note.
Continues to have significant diarrhea. Also has some associated abdominal pain nausea without vomiting.
Rectal trumpet was tried yesterday although patient requested to be removed later.
Vitals remained stable/afebrile in the night
Stool studies negative for norovirus/WBC. Stool culture report pending.
Case discussed with GI, patient to be started on empiric oral vancomycin.
If patient does not have improvement in symptoms in 48 hours , is planned to undergo flexible sigmoidoscopy.
Original Note:
Today's Communication/Plan
-
Advance diet as tolerated
Assessment / Plan
Assessment / Plan
Impression: 73-year-old female with a recent course of antibiotics 10 days ago presents with diffuse watery diarrhea, explosive nonbloody. Patient states she feels it is similar to the C. difficile episode she had in the past. C. difficile still
pending, likely C. difficile.
PLAN:
# Profuse watery diarrhea
-C. difficile studies were positive for colonization but negative for toxin
-Patient is a carrier not actively infected
-Diet was advanced from n.p.o. to clear liquids to low residue with low lactose. As per GI recommendation
-Stool culture, Giardia/Cryptosporidium, C. difficile and norovirus were all negative
-IV fluids
-Zofran/Dilaudid as needed
-GI following
-GI started her on prophylactic oral vancomycin 125 mg p.o. every 6 for C. difficile
-Will monitor for response
#Hypokalemia
-Potassium 3.2 this morning
-20 mill equivalents p.o. potassium chloride
-Recheck BMP in morning
# Ongoing chronic abdominal bloating/nausea
-Unclear etiology
-Seeing GI as outpatient
-continue dicyclomine
Essential hypertension
-hold HCTZ
GERD
-continue pepcid
Anxiety/depression
-continue xanax
Hyperlipidemia
-continue statin
Hypothyroidism
-continue levothyroxine
Full code
DVT prophylaxis�heparin
Low residue low lactose
Data:
PMH and PSH
Past Medical History: Reports Other (diverticulosis, distant history of diverticulitis, history of C. difficile in 1993, hypertension, interstitial cystitis, GERD, constipation, anxiety/depression, hyperlipidemia, hypothyroidism )
Past Surgical History: Reports Other (Cholecystectomy, Gynecological (Hysterectomy) and Other (bilateral milk duct removal of the breasts))
Anticipated Discharge: 24 - 48 hours
Subjective/Interval History
-
Date of Service: September 23, 2023
Patient still reports multiple episodes of watery, explosive, foul-smelling diarrhea. Frequency has decreased to approximately every 30 minutes per patient
Objective Data
-
Labs:
Laboratory Results
09/23/23
08:00
WBC 7.4
Hgb 12.7
Hct 35.9 L
Plt Count 240
Sodium 139
Potassium 3.2 L
Chloride 110 H
Carbon Dioxide 21 L
BUN 11
Creatinine 0.5 L
Glucose 77
Calcium 8.6
Total Bilirubin 1.3
AST 35
ALT 22
Alkaline Phosphatase 100
Vital Signs:
Vital Signs
Temp Pulse Resp BP Pulse Ox
97.8 F 82 18 107/66 96
09/23/23 07:30 09/23/23 07:30 09/23/23 07:30 09/23/23 07:30 09/23/23 07:30
I&O
09/22/23 09/23/23 09/24/23
06:59 06:59 06:59
Intake Total 350 / 350 2160 / 2160
Output Total 100 / 100
Balance 250 / 250 2159
Review of Systems
-
History Source: Patient
Constitutional: Reports No Symptoms
Respiratory: Reports No Symptoms
Cardiac: Reports No Symptoms
Abdomen/GI: Reports Abdominal Pain, Nausea, Diarrhea, Pain and Bloated; Denies Vomiting, Bloody Stools or Black Stools
Genitourinary: Reports No Symptoms
Skin: Reports No Symptoms
Physical Exam
-
General: Well Developed, Well Nourished, Pain and Morbidly Obese; Negative Fever or Chills
Respiratory: Clear to Auscultation
Cardiac: Regular Rhythm and S1/S2
GI: Soft, Normal Bowel Sounds, Tender and Distended
Musculoskeletal: No Edema
Skin: Warm and Dry
Neuro: Awake, Alert, Oriented and AO x 3
Psych: Calm and Intact Judgement/Insight
Data Reviewed
-
Diagnostic Radiology: Report Reviewed by me and Discussed with Physician
Labs: Labs Reviewed by me and Discussed with Physician
[2023-09-23 15:00] VITALS: BP 142/84
--- NOTE | 2023-09-23 15:46 | W.PN.GI.CBS2 ---
Addendum entered and electronically signed by Deneen Pascual DO 09/23/23 17:43:
Patient seen and examined independent of the resident. I agree with her note with my additions below
Lisa is a 73-year-old female with history of C. difficile in 1993, interstitial cystitis, chronic IBS and GERD followed by Dr. Petty outpatient who comes in with multiple episodes of frankly yellow frequent small stools and urgency with
significant abdominal pain who was antigen positive but toxin negative this admission with all other stools studies negative. I started her on empiric treatment for C. difficile based on symptoms and history. She has had 2 doses thus far. She
just stated her last stool was slightly more formed than multiple watery once she has had. She has taken a couple of doses of Dilaudid for the abdominal pain.
Will give her some Bentyl for cramping and I told her to try and stay away from the Dilaudid
Continue the vancomycin for empiric treatment of suspected C. difficile
If no improvement tomorrow we will put her in for a flexible sigmoidoscopy on Thursday
Low residue low lactose diet
Original Note:
Today's Communication / Plan
-
Will check celiac panel. Stool cultures pending. Add bentyl PRN for abdominal pain.
Assessment / Plan
-
73 year old female with past medical history of diverticulosis, distant history of diverticulitis, distant history of c diff (1993), hypertension, interstitial cystitis, GERD, constipation, anxiety/depression, hyperlipidemia, hypothyroidism,
hemorrhoids, who presented to ED for diarrhea and abdominal pain. Since January she has experienced bloating, intermittent abdominal pain/discomfort, constipation and has been seeing Dr. Petty as an outpatient. Her abdominal xray 09/16/23 showed
moderate stool burden, and magnesium citrate was recommended; however, she did not start mag citrate due to onset of diarrhea.
Stool studies:
- negative wbc
- negative norovirus GI and GII
- negative for cryptosporidium, giardia antigens
- c diff antigen positive, toxin negative
- salmonella/shigella culture pending
- campylobacter culture pending
- shiga toxin pending
Abdomen xray 09/22/23:
IMPRESSION: No significantly dilated air-filled loops of bowel.
The amount of stool within the colon does not appear to be excessive.
Diarrhea:
- No longer suspect overflow diarrhea given abdominal xray from 09/22/23 showing non-excessive stool burden.
- Cdiff antigen positive and toxin negative is consistent with being a carrier of nontoxigenic strain rather than acute infection with toxigenic strain. However, given unknown etiology and that patient reports this diarrhea episode feels very
similar to previous cdiff infection, we will treat empirically with vancomycin PO and monitor symptoms.
- Cryptosporidium negative, giardia negative. TSH within normal limits.
- Stool cultures pending. Will add celiac panel for tomorrow. Will follow up on results.
- Will start bentyl 10mg PRN for intermittent abdominal pain.
- Continue low residue, low lactose diet as tolerated.
Subjective
Subjective
Date of Service: September 23, 2023
She reports 2 episodes of '100/10' abdominal pain around midnight and 10am, which were relieved with dilaudid. She also reports diarrhea from 4-8am, but none since then.
Objective
Data Reviewed
Laboratory Data:
Laboratory Results
09/23/23 08:00
09/23/23 08:00
Laboratory Results
Total Bilirubin 1.3 mg/dl (0.2-1.3) 09/23/23 08:00
AST 35 U/L (14-36) 09/23/23 08:00
ALT 22 U/L (0-35) 09/23/23 08:00
Alkaline Phosphatase 100 U/L (38-126) 09/23/23 08:00
Lipase 38 U/L (23-300) 09/21/23 20:07
Vital Signs and I&O:
Vital Signs
Temp Pulse Resp BP Pulse Ox
97.7 F 79 14 142/84 96
09/23/23 15:00 09/23/23 15:00 09/23/23 15:00 09/23/23 15:00 09/23/23 15:00
I&O
09/22/23 09/23/23 09/24/23
06:59 06:59 06:59
Intake Total 350 / 350 2160 / 2160
Output Total 100 / 100
Balance 250 / 250 2160 / 2160
Physical Exam
Physical Exam
General: Resting comfortably in bed, no acute distress.
Heart: Regular rate and rhythm.
Lungs: Nonlabored breathing. Clear and equal to auscultations bilaterally.
GI: Normal bowel sounds present. Mild tenderness to palpation diffusely. Abdomen soft, obese, nondistended. No rebound, rigidity, guarding.
--- NOTE | 2023-09-23 16:26 | W.DCSUMMARY ---
Addendum entered and electronically signed by Jon Ybarra MD 09/26/23 07:51:
Read, reviewed, and agree. See same day progress note for additional details. Time spent coordinating care, DC planning, review of DC plan of care with resident, transition of care, review of records in EMR, med rec, consults, notes, d/w
consultants, nursing, family, and CM 37 mins
Original Note:
Discharge Summary
Discharge Data
Date of Admission: 09/21/23
Date of Discharge: 09/24/23
-
Pending Results: No
Hospital Course
Discharging Physician : Tate Romo
Disposition : Home
Primary care physician : Kamlesh Brown
Principal Discharge diagnosis : Acute gastroenteritis
Chronic Discharge diagnosis : Hypokalemia, ongoing chronic abdominal bloating/nausea, essential hypertension, GERD, anxiety, depression, hyperlipidemia, hypothyroidism, diverticulosis, distant history of C. difficile in 1993, interstitial cystitis,
constipation
Hospital Course : 73-year-old female with past medical history of hypertension hyperlipidemia and recently diagnosed diverticulitis presented to the emergency department at request of GI for evaluation of 24 hours severe watery nonbloody diarrhea.
Patient states that she was having episodes 'every 5 minutes. She describes it as yellow and very foul-smelling. Denies any recent sick contacts or travel. Patient had a recent antibiotic regiment of Levaquin, ciprofloxacin and Flagyl for
diverticulitis 10 days prior to admission. C. difficile antigen was positive however toxin was negative indicating patient is a carrier and not actively infected with C. difficile. Stool studies negative for norovirus Giardia and Cryptosporidium.
Patient had no white blood cells in feces. Patient was started on prophylactic oral vancomycin by GI who consulted the patient and followed her throughout her hospital course. Diet was advanced from n.p.o. to clear liquids eventually to low
residue and low lactose. Patient tolerated diet well. Flex sig anoscopy was canceled due to patient declining, patient was discharged on oral vancomycin, celiac panel was also ordered. Patient will follow-up with GI as an outpatient on Thursday.
Patient was discharged home.
Important imaging findings : 09/22/2023 portable abdomen x-ray, findings:
No significantly dilated air-filled loops of bowel are identified. There does not appear to be an excessive amount of stool within the colon.
Surgical clips are seen projecting over the midline lower pelvis.
Mild to moderate diffuse changes of degenerative disc disease within the thoracic and lumbar spine.
Mild degenerative change of both hip joints.
Surgical clips in the right upper quadrant compatible with previous cholecystectomy.
Procedure findings :
None
Discharge Plan
-
Patient Disposition: Home (Routine Discharge)
Discharge Diagnosis/Procedures: Acute diarrhea, Cdiff antigen positive only
Condition: Fair
Diet: Other diet
Additional Diets: Low lactose diet
Activity: As tolerated
Driving Restrictions: As prior to admission
Bathing Restrictions: OK to Shower
Referrals:
Kamlesh Brown MD [Family Provider] - in one week
Mariama Petty MD [Active] - in one week
Prescriptions:
New
nifedipine [Procardia XL] 30 mg tablet extended release 24hr
30 mg PO DAILY Qty: 30 0RF
vancomycin [Vancocin] 125 mg capsule
125 mg PO QID Qty: 35 0RF
dicyclomine 10 mg capsule
10 mg PO TID PRN (Reason: abdominal pain/Spasm) Qty: 14 0RF
Continued
alprazolam 1 MG tablet
1 mg PO HS
Patient Comments:
09/21/2023: last filled 09/21/23, 90 tabs for 90 days from [facility]
levothyroxine 88 MCG tablet
88 mcg PO DAILY
acetaminophen 325 MG tablet
650 mg PO Q6HPRN PRN (Reason: mild pain/ fever>100.5F) 0RF
atorvastatin 40 MG tablet
40 mg PO QPM
Pepcid Complete 10-800-165 mg Tablet,Chewable
1 tab PO HS
zolpidem 6.25 mg tablet,ext release multiphase
6.25 mg PO HSPRN PRN (Reason: sleep)
Patient Comments:
09/21/2023: last filled 09/21/23, 30 tabs for 30 days from [id number]
cholecalciferol (vitamin D3) 50 mcg (2,000 unit) Tablet
50 mcg PO DAILY
dexlansoprazole 60 mg capsule,biphase delayed releas
60 mg PO DAILY
Discontinued
hydrochlorothiazide 25 MG tablet
25 mg PO DAILY
Discharge Orders:
Discharge Patient (As Directed); Ordered 09/24/23
Ordered By: Jon Ybarra
Discharge Date and Time
Discharge Date/Time: 09/24/23 16:21
Print Language: SINHALA
[2023-09-23] MEDS: LIPITOR 40 MG PO (17:23)
[2023-09-23] MEDS: XANAX 1 MG PO (21:08)
[2023-09-23 23:35] VITALS: BP 136/68
[2023-09-24] MEDS: NSS 1000 IV (04:25)
[2023-09-24] MEDS: BENTYL 10 MG PO ×2 (04:40→13:31)
--- NOTE | 2023-09-24 04:42 | PTCARENOTE ---
Pt states diarrhea slowed down a bit earlier in the night but has picked up again and she is feeling discouraged. Pt also having abdominal pain, Bentyl prn given. Pt oob ambulating in halls. vss.
[2023-09-24] MEDS: SYNTHROID 88 MCG PO (05:48)
[2023-09-24] MEDS: FIRVANQ 125 MG PO ×2 (05:48→12:28)
[2023-09-24 07:52] VITALS: BP 132/82
[2023-09-24 08:39] LABS: % Basophils 0.6 % (0-2); % Eosinophils 2.9 % (0-6); % Immature Granulocytes 0.6 % (0-0.5); % Lymphocytes 16.8 % (20.5-51.1); % Monocytes 7.6 % (1.7-9.3); % Neutrophils 71.5 % (42.2-75.2); Absolute Basophils 0.1 10^3/uL (0-0.2); Absolute Eosinophils 0.3 10^3/uL (0-0.7); Absolute Immature Granulocytes 0.1 10^3/uL (0-0.05); Absolute Lymphocytes 1.5 10^3/uL (1.2-3.4); Absolute Monocytes 0.7 10^3/uL (0.1-0.6); Absolute Neutrophils 6.2 10^3/uL (1.4-6.5); Hematocrit 35.7 % (37.0-47.0); Hemoglobin 12.7 g/dL (12.0-16.0); Mean Corp Hgb Conc. 35.6 g/dL (33.0-37.0); Mean Corpuscular Hgb 30.4 pg (27.0-31.0); Mean Corpuscular Volume 85.4 fL (81.0-99.0); Mean Platelet Volume 9.5 fL (7.4-10.4); Nucleated Red Blood Cells % 0 %; Platelet Count 262 10^3/uL (130-400); Red Blood Cell Count 4.18 10^6/uL (4.20-5.40); Red Cell Dist. Width 14.7 % (11.5-14.5); White Blood Cell Count 8.7 10^3/uL (4.8-10.8)
--- NOTE | 2023-09-24 09:03 | W.PN.GI.CBS2 ---
Addendum entered and electronically signed by Deneen Pascual DO 09/24/23 14:10:
patient seen and examined independently with resident. I agree with her note with my additions below
Patient appears to have some mild improvement but still having fecal urgency and at least 7trips to the bathroom for small output.
I offered her a flexible sigmoidoscopy tomorrow inpatient. She is stable on labs and vitals for discharge and I spoke to Dr. Petty who could do it on Thursday (that is her outpatient GI doc).
She is comfortable with this plan.Discussed with Dr. Ybarra as well.
WIll finish out the 10 day vanco course. Patient aware to hydrate at home. Ok for bentyl for cramping and discomfort.
Original Note:
Today's Communication / Plan
-
Continue vancomycin, bentyl, pepcid. Celiac panel pending, stool cultures pending.
Assessment / Plan
-
73 year old female with past medical history of diverticulosis, distant history of diverticulitis, distant history of c diff (1993), hypertension, interstitial cystitis, GERD, constipation, anxiety/depression, hyperlipidemia, hypothyroidism,
hemorrhoids, who presented to ED for diarrhea and abdominal pain. Since January she has experienced bloating, intermittent abdominal pain/discomfort, constipation and has been seeing Dr. Petty as an outpatient. Her abdominal xray 09/16/23 showed
moderate stool burden, and magnesium citrate was recommended; however, she did not start mag citrate due to onset of diarrhea.
Stool studies:
- negative wbc
- negative norovirus GI and GII
- negative for cryptosporidium, giardia antigens
- c diff antigen positive, toxin negative
- salmonella/shigella culture pending
- campylobacter culture pending
- shiga toxin pending
Abdomen xray 09/22/23:
IMPRESSION: No significantly dilated air-filled loops of bowel.
The amount of stool within the colon does not appear to be excessive.
Diarrhea:
- Cdiff antigen positive and toxin negative is consistent with being a carrier of nontoxigenic strain rather than acute infection with toxigenic strain. However, given unknown etiology and that patient reports this diarrhea episode feels very
similar to previous cdiff infection, she was started on empiric treatment with vancomycin PO.
- Continues to have multiple loose bowel movements overnight, though there is slight improvement in frequency and consistency. Will continue vancomycin empirically.
- Cryptosporidium negative, giardia negative. TSH within normal limits.
- Stool cultures pending. Celiac panel pending. Will follow up on results.
- Continue bentyl PRN, as this is helping her intermittent abdominal cramps.
- Continue low residue, low lactose diet as tolerated.
- Continue to monitor bowel movements today, and if no improvement can consider flexible sigmoidoscopy tomorrow.
Anxiety:
- Currently on xanax nightly for sleep. She is requesting daytime medication to help with ongoing anxiety.
- Can consider psychiatry consult for long- or short-term management of anxiety symptoms, though will defer to primary team.
Subjective
Subjective
Date of Service: September 24, 2023
She reports approximately 8 loose bowel movements between 3am-7:30am today. She had a sandwich for lunch yesterday, and flounder and noodles for dinner. She had no bowel movements between dinner last night and 3am this morning. She says her bowel
movements range from watery to slightly thicker liquid in consistency, and she has had no solid or formed stools. She denies bloody or black stools. She denies nausea, vomiting. Her abdominal pain is improving, she says the bentyl helped reduce her
cramps. She reports that she is very 'worked up' and anxious, and is requesting ativan as needed throughout the day to help. She notices that her anxiety correlates to abdominal pain, but not to the diarrhea.
Objective
Data Reviewed
Laboratory Data:
Laboratory Results
09/24/23 08:00
Laboratory Results
Total Bilirubin 1.3 mg/dl (0.2-1.3) 09/23/23 08:00
AST 35 U/L (14-36) 09/23/23 08:00
ALT 22 U/L (0-35) 09/23/23 08:00
Alkaline Phosphatase 100 U/L (38-126) 09/23/23 08:00
Lipase 38 U/L (23-300) 09/21/23 20:07
Vital Signs and I&O:
Vital Signs
Temp Pulse Resp BP Pulse Ox
97.8 F 74 16 132/82 94
09/24/23 07:52 09/24/23 07:52 09/24/23 07:52 09/24/23 07:52 09/24/23 07:52
I&O
09/23/23 09/24/23 09/25/23
06:59 06:59 06:59
Intake Total 2160 / 2160 960 / 960
Balance 2160 / 2160 960 / 960
Physical Exam
Physical Exam
General: Ambulating halls, and sitting comfortably in chair. No acute distress.
Heart: Regular rate and rhythm.
Lungs: Nonlabored breathing. Clear and equal to auscultation bilaterally.
GI: Normal bowel sounds present. Abdomen obese, soft, nontender, nondistended. No rebound, rigidity, guarding.
[2023-09-24] MEDS: HEPARIN 5000 UNITS SC (09:07)
[2023-09-24 09:10] LABS: ALT (SGPT) 27 U/L (0-35); AST (SGOT) 46 U/L (14-36); Albumin 3.4 g/dl (3.5-5.0); Alkaline Phosphatase 93 U/L (38-126); Blood Urea Nitrogen 9 mg/dl (7-17); Calcium 8.4 mg/dl (8.4-10.2); Carbon Dioxide 22 mmol/L (22-30); Chloride 111 mmol/L (98-107); Estimated Creatinine Clearance 111 ml/min; Glucose 88 mg/dl (70-99); Potassium 3.4 mmol/L (3.5-5.1); Sodium 140 mmol/L (135-145); Total Bilirubin 1.3 mg/dl (0.2-1.3); Total Protein 5.8 g/dl (6.3-8.2); eGFR > 60.00
--- NOTE | 2023-09-24 09:31 | W.PN.HOSP.TC ---
Addendum entered and electronically signed by Jon Ybarra MD 09/25/23 08:21:
I saw and evaluated the patient. I reviewed the resident�s note and agree with findings and plan as documented in the resident�s note.
Please see update note from today for further comments.
Original Note:
Today's Communication/Plan
-
N.p.o. after midnight
Assessment / Plan
Assessment / Plan
Impression: 73-year-old female with a recent course of antibiotics 10 days ago presents with diffuse watery diarrhea, explosive nonbloody. Patient states she feels it is similar to the C. difficile episode she had in the past. C. difficile still
pending, likely C. difficile.
PLAN:
# Profuse watery diarrhea
-C. difficile studies were positive for colonization but negative for toxin
-Patient is a carrier not actively infected
-Diet was advanced from n.p.o. to clear liquids to low residue with low lactose. As per GI recommendation
-Stool culture, Giardia/Cryptosporidium, C. difficile and norovirus were all negative
-IV fluids
-Zofran/Dilaudid as needed
-GI following
-GI started her on prophylactic oral vancomycin 125 mg p.o. every 6 for C. difficile
-Will monitor for response
-Flexible sigmoidoscopy planned for tomorrow
-Patient will be n.p.o. after midnight
#Hypokalemia
-Potassium 3.2 this morning
-20 mill equivalents p.o. potassium chloride
-Recheck BMP in morning
# Ongoing chronic abdominal bloating/nausea
-Unclear etiology
-Seeing GI as outpatient
-continue dicyclomine
Essential hypertension
-hold HCTZ
GERD
-continue pepcid
Anxiety/depression
-continue xanax
Hyperlipidemia
-continue statin
Hypothyroidism
-continue levothyroxine
Full code
DVT prophylaxis�heparin
Low residue low lactose
Data:
PMH and PSH
Past Medical History: Reports Other (diverticulosis, distant history of diverticulitis, history of C. difficile in 1993, hypertension, interstitial cystitis, GERD, constipation, anxiety/depression, hyperlipidemia, hypothyroidism )
Past Surgical History: Reports Other (Cholecystectomy, Gynecological (Hysterectomy) and Other (bilateral milk duct removal of the breasts))
Anticipated Discharge: 24 - 48 hours
Subjective/Interval History
-
Date of Service: September 24, 2023
Patient describes multiple episodes of diarrhea overnight, starting at 3 AM
Objective Data
-
Labs:
Laboratory Results
09/24/23 09/24/23
07:18 08:00
WBC Cancelled 8.7
Hgb Cancelled 12.7
Hct Cancelled 35.7 L
Plt Count Cancelled 262
Sodium 140
Potassium 3.4 L
Chloride 111 H
Carbon Dioxide 22
BUN 9
Creatinine 0.5 L
Glucose 88
Calcium 8.4
Total Bilirubin 1.3
AST 46 H
ALT 27
Alkaline Phosphatase 93
Vital Signs:
Vital Signs
Temp Pulse Resp BP Pulse Ox
97.8 F 74 16 132/82 94
09/24/23 07:52 09/24/23 07:52 09/24/23 07:52 09/24/23 07:52 09/24/23 07:52
I&O
09/23/23 09/24/23 09/25/23
06:59 06:59 06:59
Intake Total 2160 / 2160 960 / 960
Balance 2160 / 2160 960 / 960
[2023-09-24 11:13] LABS: IgA 171 mg/dl (70-400)
[2023-09-24 14:41] VITALS: BP 159/86
--- NOTE | 2023-09-24 15:01 | W.PN.UPDATE ---
Addendum entered and electronically signed by Jon Ybarra MD 09/25/23 08:33:
Add on to diagnosis list
Anxiety - on xanax
HLD - maintain on statin
Obesity - due to excessive calorie intake
Original Note:
Update Note
Progress Note Update
I saw and evaluated the patient. I reviewed the resident�s note and agree with findings and plan as documented in the resident�s note.
Patient having some soft abdominal exam movement in the morning today although had diarrhea in the night. Abdominal pain is improved not nauseous.
Appetite is not back to normal yet
1. Acute diarrhea
C. difficile antigen positive, toxin negative
-patient with new onset of frequent small bowel movements. Patient stated of having memory issues and cannot remember if have recurrent issues like this in the past. No previous GI evaluation.
-Abd xr showing mod stool burden
-C. difficile antigen positive, toxin negative.
-Stool leukocytes/norovirus negative. Stool culture negative as well with
-GI treating empirically with oral vancomycin and recommended to provide 10 days of course at discharge
-In hospital flex sigmoidoscopy discussed although patient declined, planning to come back to office on thursday
Discussed with GI
Discharge home
--- NOTE | 2023-09-24 15:52 | CM ---
Met with patient at bedside to discuss discharge planning
IMM benefit explained; form signed@ [id number]
Plan: discharge to home today; friend will transport home via private car; no needs
[2023-09-24] MEDS: NSS IV (16:03)
[2023-09-26 18:33] LABS: Endomysial IgA Antibody Titer <1:10 (<1:10)
== END 2023-09-24 16:21 | disposition home or self-care (01) | DRG 392 ==
LOC: 4 WEST ACU 22:57
PROVIDERS: Nurse Practitioner Family; Physician Assistant Medical; Student in an Organized Health Care Education/Training Program; ADMITTING PHYSICIAN Hospitalist; ATTENDING PHYSICIAN Hospitalist; CONSULT PHYSICIAN Internal Medicine; EMERGENCY PHYSICIAN Emergency Medicine; FAMILY PHYSICIAN Internal Medicine
DX: A09 Infectious gastroenteritis and colitis, unspecified (principal); Z68.41 Body mass index [BMI] 40.0-44.9, adult; I10 Essential (primary) hypertension; E03.9 Hypothyroidism, unspecified; F32.A Depression, unspecified; E66.09 Other obesity due to excess calories; N30.10 Interstitial cystitis (chronic) without hematuria; E87.6 Hypokalemia; F41.9 Anxiety disorder, unspecified; K21.9 Gastro-esophageal reflux disease without esophagitis; E78.5 Hyperlipidemia, unspecified; K58.9 Irritable bowel syndrome, unspecified; Z22.1 Carrier of other intestinal infectious diseases; M51.36 Other intervertebral disc degeneration, lumbar region; M51.34 Other intervertebral disc degeneration, thoracic region; M16.0 Bilateral primary osteoarthritis of hip; Z79.890 Hormone replacement therapy; Z79.899 Other long term (current) drug therapy; Z86.19 Personal history of other infectious and parasitic diseases; Z87.19 Personal history of other diseases of the digestive system; Z90.49 Acquired absence of other specified parts of digestive tract; Z88.0 Allergy status to penicillin; Z88.1 Allergy status to other antibiotic agents; Z88.8 Allergy status to other drugs, medicaments and biological substances
CPT/HCPCS: 74018; 80048; 80053; 81003; 81015; 82784; 83516; 83690; 84132; 84443; 85025; 86231; 87045; 87046; 87086; 87324; 87328; 87329; 87427; 87449; 87798; 89055; 96360; 99285

== ENCOUNTER → 2023-09-28 06:38 | Day surgery (SDC) | payer MEDICARE, BC, SELFPAY | LOC: GI 06:38 | PROVIDERS: ATTENDING PHYSICIAN Internal Medicine Gastroenterology | DX: R19.7 Diarrhea, unspecified (principal); K57.30 Diverticulosis of large intestine without perforation or abscess without bleeding; K64.4 Residual hemorrhoidal skin tags | CPT/HCPCS: 45331; 88305; 88342 ==

== ENCOUNTER → 2023-10-07 07:05 | Outpatient (REF) | payer MEDICARE, BC, SELFPAY ==
[2023-10-09 13:28] LABS: Gastrin 27 pg/mL (0-100)
[2023-10-09 13:45] LABS: Chromogranin A 65 ng/mL (0-187)
== END ==
LOC: REG 07:05
PROVIDERS: ATTENDING PHYSICIAN Internal Medicine Gastroenterology; FAMILY PHYSICIAN Physician Assistant Medical
DX: R19.7 Diarrhea, unspecified (principal)
CPT/HCPCS: 36415; 82941; 86316

== ENCOUNTER → 2023-10-09 08:36 | Outpatient (REF) | payer MEDICARE, BC, SELFPAY ==
[2023-10-09 09:17] LABS: % Basophils 1.5 % (0-2); % Eosinophils 2.1 % (0-6); % Immature Granulocytes 0.4 % (0-0.5); % Lymphocytes 16.5 % (20.5-51.1); % Monocytes 6.9 % (1.7-9.3); % Neutrophils 72.6 % (42.2-75.2); Absolute Basophils 0.1 10^3/uL (0-0.2); Absolute Eosinophils 0.2 10^3/uL (0-0.7); Absolute Lymphocytes 1.5 10^3/uL (1.2-3.4); Absolute Monocytes 0.6 10^3/uL (0.1-0.6); Absolute Neutrophils 6.7 10^3/uL (1.4-6.5); Hemoglobin 14.3 g/dL (12.0-16.0); Mean Corp Hgb Conc. 34.9 g/dL (33.0-37.0); Mean Corpuscular Hgb 29.9 pg (27.0-31.0); Mean Corpuscular Volume 85.6 fL (81.0-99.0); Mean Platelet Volume 10.5 fL (7.4-10.4); Nucleated Red Blood Cells % 0 %; Platelet Count 212 10^3/uL (130-400); Red Blood Cell Count 4.79 10^6/uL (4.20-5.40); Red Cell Dist. Width 14.2 % (11.5-14.5); White Blood Cell Count 9.3 10^3/uL (4.8-10.8)
[2023-10-09 09:50] LABS: ALT (SGPT) 36 U/L (0-35); AST (SGOT) 38 U/L (14-36); Albumin 4.2 g/dl (3.5-5.0); Alkaline Phosphatase 92 U/L (38-126); Blood Urea Nitrogen 10 mg/dl (7-17); Calcium 9.7 mg/dl (8.4-10.2); Carbon Dioxide 21 mmol/L (22-30); Chloride 109 mmol/L (98-107); Glucose 89 mg/dl (70-99); Potassium 3.8 mmol/L (3.5-5.1); Sodium 139 mmol/L (135-145); Total Bilirubin 1.4 mg/dl (0.2-1.3); Total Protein 6.6 g/dl (6.3-8.2); eGFR > 60.00
[2023-10-09 10:01] LABS: Free T4 1.38 ng/dl (0.78-2.19)
[2023-10-09 10:15] LABS: TSH 2.54 uIU/ml (0.47-4.68)
== END ==
LOC: REG 08:36
PROVIDERS: ATTENDING PHYSICIAN Physician Assistant Medical
DX: R19.7 Diarrhea, unspecified (principal); E03.8 Other specified hypothyroidism
CPT/HCPCS: 36415; 80053; 84439; 84443; 85025

== ENCOUNTER 2023-10-18 05:57 | Emergency (ER) | payer MEDICARE, BC, SELFPAY ==
[2023-10-18 05:57] VITALS: BMI 38.7
[2023-10-18 06:10] VITALS: BP 132/88
[2023-10-18 06:34] VITALS: BP 120/81
--- NOTE | 2023-10-18 07:34 | ED.GENMED ---
History of Present Illness
<Lizette Lam MD, Resident - Last Filed: 10/18/23 14:27>
General
Chief Complaint: Urinary Symptoms
Time Seen by Provider: 10/18/23 06:46
History of Present Illness
History of Present Illness:
The patient presented today ED complaining from burning sensation while urinating. The patient reported that she was hospitalized due diarrhea at the beginning if September and stayed at hospital for a few days and was discharged on vancomycin. She took
vancomycin a few days and completed her antibiotic cure. Following one week later later, she started to have pain on her perineum and burning sensation while urinating. She noticed that her urine color was dark yellow at that time and went to
hospital to be checked. Her urine culture was ordered and one week later she was started on levofloxacin. She stated to take levofloxacin since last Thursday and took for 4 days and yesterday she had chills. She believes levofloxacin did not help
her urinary symptoms and she got worsened.
Her Urine culture results from 10.07.23 ([facility]) was reviewed.
PMH:
GERD
HTN
Hypothyroidism
Diverticulosis
Constipation
Past Surgical History:
Cholecystectomy
Hysterectomy
Past History
<Lizette Lam MD, Resident - Last Filed: 10/18/23 14:27>
Past History
ED Past Medical History: GERD, HTN, Hypercholesterolemia, Hypothyroidism ([place]), Psychiatric (depression) and Other (Diverticulitis, polyps, interstitial cystitis, kidney stones, Nathaniel's thyroiditis, hyperparathyroid); Negative IDDM or
NIDDM
ED Past Surgical History: Cholecystectomy, Gynecological (Hysterectomy) and Other (bilateral milk duct removal of the breasts); Negative Appendectomy
Patient has exhibited threatening behavior?: No
Social History
Tobacco: Non-smoker
Alcohol: None
Drug: None
Personal:
Living: with family
Employment: Employed
Family History
Family History: Hypertension
Phy Exam
<Lizette Lam MD, Resident - Last Filed: 10/18/23 14:27>
General Physical Exam
General Presentation: moderate distress
General Skin: warm
General Habitus: normal
General Hydration: appears well hydrated
ENT Exam
ENT Exam: EOMI
Eye Exam
Eye Exam: EOMI
Cardiovascular Exam
Cardiovascular Exam: regular rate/rhythm, no edema, no JVD and no murmur
Pulmonary Exam
Pulmonary Exam: lungs clear, no respiratory distress, no rales, no crackles, no stridor and no wheezing
Gastrointestinal Exam
Gastrointestinal Exam: non tender, soft and other (lower middle abdomen pain / pain to palpation )
Genitourinary Exam Female
Exam Female: other
Neurological Exam
Neurological Exam: alert, oriented x3 and no motor deficits
Musculoskeletal Exam
Musculoskeletal Exam: full ROM and no edema
Course
<Lizette Lam MD, Resident - Last Filed: 10/18/23 14:27>
Orders/Labs/Results
Orders:
Orders
10/18/23 07:14
Acetaminophen [Tylenol] 500 mg PO NOW STA
10/18/23 08:08
Basic Metabolic Panel Urgent
Complete Blood Count/With Diff Urgent
Urinalysis Reflex To Culture Urgent
Date Specimen was Collected: 10/18/23
Time Specimen was Collected: 07:40
Urine Microscopic Reflex Cult Urgent
Urine Culture Urgent
STEPHANIE Source: U
Specimen Description:
Date Specimen was Collected: 10/18/23
Time Specimen was Collected: 07:40
10/18/23 08:16
Phenazopyridine HCl [Pyridium] 200 mg PO NOW STA
10/18/23 10:05
Oxybutynin Chloride [Ditropan] 5 mg PO NOW STA
10/18/23 10:06
CT Abd/pel Without Iv Or Oral Urgent
Comment:
Reason For Exam: lower abd pain, dysuria, persistent UTI--r/o stone
10/18/23 11:54
Cefdinir [Omnicef] 300 mg PO NOW STA
Abnormal Lab Results
10/18/23
08:08
WBC 11.5 H 10^3/uL
(4.8-10.8)
Abs Immat Gran (auto) 0.1 H 10^3/uL
(0-0.05)
Absolute Neuts (auto) 8.5 H 10^3/uL
(1.4-6.5)
Absolute Monos (auto) 0.8 H 10^3/uL
(0.1-0.6)
Lymphocytes % 16.1 L %
(20.5-51.1)
Urine Ketones Trace A
(Negative)
Urine Bilirubin 1+ A
(Negative)
Leukocyte Esterase Rfl Trace A
(Negative)
Urine RBC 3-6 A /HPF
(0-2)
Urine Bacteria (Reflex) Moderate A
(Negative)
Urine Albumin (Reflex) 2+ A
(Neg - Trace)
10/18/23 08:08
10/18/23 08:08
Vital Signs
Initial and Last Documented VS:
Initial Vital Signs
Temp Pulse Resp BP Pulse Ox
98.0 F 103 20 132/88 97
10/18/23 06:10 10/18/23 06:10 10/18/23 06:10 10/18/23 06:10 10/18/23 06:10
Last Documented Vital Signs
Temp Pulse Resp BP Pulse Ox
98.0 F 80 18 120/74 95
10/18/23 06:10 10/18/23 11:02 10/18/23 11:02 10/18/23 11:02 10/18/23 11:02
<Michael Varela MD - Last Filed: 10/18/23 08:22>
Orders/Labs/Results
Orders:
Orders
10/18/23 07:14
Acetaminophen [Tylenol] 500 mg PO NOW STA
10/18/23 08:08
Basic Metabolic Panel Urgent
Complete Blood Count/With Diff Urgent
Urinalysis Reflex To Culture Urgent
Date Specimen was Collected: 10/18/23
Time Specimen was Collected: 07:40
Urine Microscopic Reflex Cult Urgent
Urine Culture Urgent
STEPHANIE Source: U
Specimen Description:
Date Specimen was Collected: 10/18/23
Time Specimen was Collected: 07:40
10/18/23 08:16
Phenazopyridine HCl [Pyridium] 200 mg PO NOW STA
10/18/23 10:05
Oxybutynin Chloride [Ditropan] 5 mg PO NOW STA
10/18/23 10:06
CT Abd/pel Without Iv Or Oral Urgent
Comment:
Reason For Exam: lower abd pain, dysuria, persistent UTI--r/o stone
10/18/23 11:54
Cefdinir [Omnicef] 300 mg PO NOW STA
Abnormal Lab Results
10/18/23
08:08
WBC 11.5 H 10^3/uL
(4.8-10.8)
Abs Immat Gran (auto) 0.1 H 10^3/uL
(0-0.05)
Absolute Neuts (auto) 8.5 H 10^3/uL
(1.4-6.5)
Absolute Monos (auto) 0.8 H 10^3/uL
(0.1-0.6)
Lymphocytes % 16.1 L %
(20.5-51.1)
Urine Ketones Trace A
(Negative)
Urine Bilirubin 1+ A
(Negative)
Leukocyte Esterase Rfl Trace A
(Negative)
Urine RBC 3-6 A /HPF
(0-2)
Urine Bacteria (Reflex) Moderate A
(Negative)
Urine Albumin (Reflex) 2+ A
(Neg - Trace)
10/18/23 08:08
10/18/23 08:08
Vital Signs
Initial and Last Documented VS:
Initial Vital Signs
Temp Pulse Resp BP Pulse Ox
98.0 F 103 20 132/88 97
10/18/23 06:10 10/18/23 06:10 10/18/23 06:10 10/18/23 06:10 10/18/23 06:10
Last Documented Vital Signs
Temp Pulse Resp BP Pulse Ox
98.0 F 80 18 120/74 95
10/18/23 06:10 10/18/23 11:02 10/18/23 11:02 10/18/23 11:02 10/18/23 11:02
<Lizette Lam MD, Resident - Last Filed: 10/18/23 14:27>
*Critical Care Note
Total Time (30-74mins, 75-104mins- exclusive of procedures): Not Applicable
<Lizette Lam MD, Resident - Last Filed: 10/18/23 14:27>
Comment
Comment:
interstitial cystitis, systemic infection,
ED Attending Note
<Lizette Lam MD, Resident - Last Filed: 10/18/23 14:27>
-
Portions of this chart may have been created with voice recognition software.� Occasional wrong word or��sound alike� substitutions may have occurred due to the inherent limitations of voice recognition software.
<Michael Varela MD - Last Filed: 10/18/23 08:22>
ED Attending Note
Patient seen and examined by attending physician: Yes
I performed a history and physical exam of patient and discussed management with resident, I reviewed resident's note and agree with documented findings and plan of care.: Yes
ED Attending Note:
I have seen and evaluated the patient with a dxul-ia-yiff encounter. I have spoken to the resident and involved in the medical history, the physical exam, medical decision making.
Evaluation and management service: agree unless noted differently below.
Results interpretation: agree unless noted differently below.
Focused HPI: 73-year-old female with medical history as documented who presents to the emergency room for evaluation of dysuria and bladder pressure. Patient was recently admitted to the hospital for diarrheal illness�during this hospitalization
she was tested for C. difficile and was negative for the toxin but positive for antigen. Nevertheless she was treated with oral vancomycin. Patient reports that she had been cleaning her urethra quite vigorously during that time due to frequent
bowel movements. She says that she is concerned that she developed a UTI because of this; she says about 2 weeks ago she developed persistent dysuria and since then has developed increasing bladder pressure as well. She says that she has noticed
that her urine is dark and foul-smelling. She initially presented to urgent care shortly after onset and she had a urinalysis and culture sent off; she received a call this week that culture was positive for Klebsiella and Enterococcus. She was
started on Levaquin based on sensitivities. She has been taking Levaquin for the past 4 days but she says she is having persistent urinary symptoms and so she came to the emergency to be assessed. She says she did have a bout of chills 2 days ago
but has not had recurrence. She denies any flank pain. She denies any nausea or vomiting. She says diarrhea has resolved. Denies any other complaints.
Physical exam: Awake alert not in distress. Tachycardic but otherwise normal vitals. She has very mild suprapubic tenderness. She has no erythema, sores, or excoriations of the vulva lower periurethral area on examination. She has no CVA
tenderness. No cardiac rubs gallops or murmurs. Lungs clear to auscultation bilaterally.
Medical Decision Makin-year-old female presents with dysuria and suprapubic discomfort for the past 2 weeks in the setting of recent diarrheal illness last month. Found to have positive UA at urgent care started on Levaquin x 4 days without
significant improvement. Vitals and exam as above. Will check CBC and a CMP. Will check urinalysis. Check CT to rule out nidus for infection. Will treat with Pyridium. Reassess after the above.
Discharge Plan
Departure
Patient Disposition: Home (Routine Discharge)
Date of Disposition: 10/18/23
Time of Disposition: 11:54
Patient with high blood pressure during this ER visit?: No
Discharge Problem:
Dysuria, UTI (urinary tract infection)
Instructions: Urinary Tract Infection, Adult (DC)
Prescriptions:
New
cefdinir 300 mg capsule
300 mg PO BID 5 Days Qty: 10 0RF
oxybutynin chloride 5 mg tablet
5 mg PO BID 7 Days Qty: 14 0RF
phenazopyridine [Pyridium] 200 mg tablet
200 mg PO TID PRN (Reason: Pain) Qty: 6 0RF
No Action
alprazolam 1 MG tablet
1 mg PO HS
Patient Comments:
09/21/2023: last filled 09/21/23, 90 tabs for 90 days from [facility]
levothyroxine 88 MCG tablet
88 mcg PO DAILY
acetaminophen 325 MG tablet
650 mg PO Q6HPRN PRN (Reason: mild pain/ fever>100.5F) 0RF
atorvastatin 40 MG tablet
40 mg PO QPM
Pepcid Complete 10-800-165 mg Tablet,Chewable
1 tab PO HS
zolpidem 6.25 mg tablet,ext release multiphase
6.25 mg PO HSPRN PRN (Reason: sleep)
Patient Comments:
09/21/2023: last filled 09/21/23, 30 tabs for 30 days from [id number]
cholecalciferol (vitamin D3) 50 mcg (2,000 unit) Tablet
50 mcg PO DAILY
dexlansoprazole 60 mg capsule,biphase delayed releas
60 mg PO DAILY
nifedipine [Procardia XL] 30 mg tablet extended release 24hr
30 mg PO DAILY Qty: 30 0RF
vancomycin [Vancocin] 125 mg capsule
125 mg PO QID Qty: 35 0RF
dicyclomine 10 mg capsule
10 mg PO TID PRN (Reason: abdominal pain/Spasm) Qty: 14 0RF
Referrals:
Lisa Fernandez PA-C [Family Provider] -
Amarjit Sullivan MD [Active] - Call in 1-3 days for appt (Urogynecologist )
Activity Restrictions/Additional Instructions:
Thank you for visiting the Emergency Department at [facility].
1. Please schedule a follow up appointment as directed. Call first thing tomorrow morning to make an appointment.
2. If indicated, please take your medications as instructed and indicated on discharge paperwork.
3. If any of your symptoms do not improve, or persist, or become more severe within 6-12 hours, please return to the emergency department for further care.
4. Please return to the emergency department if you develop a headache, neck pain/stiffness, fever greater than 100.4F, chest pain, shortness of breath, persistent nausea, vomiting, slurred speech, difficulty walking, numbness/tingling, weakness,
signs of infection or any other symptoms that are worrisome to you.
Please call [phone] if you have any questions.
Interventions
Interventions:
*Risk Screen - Suicide Last Done: 10/18/23 06:10
*General Assessment Last Done: 10/18/23 06:10
*Neglect/Abuse Screening Last Done: 10/18/23 06:10
ED- Fall Risk Assessment Last Done: 10/18/23 06:10
*ED COVID-19 Vaccine History Last Done: 10/18/23 06:10
*Nursing Disposition Last Done: 10/18/23 12:13
ED-Female Genitourinary Assessment Last Done: 10/18/23 06:36
Discharge Date and Time
Discharge Date/Time: 10/18/23 12:15
Print Language: INDONESIAN
[2023-10-18] MEDS: TYLENOL 500 MG PO (08:13)
[2023-10-18 08:37] LABS: Blood Urea Nitrogen 16 mg/dl (7-17); Carbon Dioxide 23 mmol/L (22-30); Chloride 105 mmol/L (98-107); Estimated Creatinine Clearance 92 ml/min; Glucose 89 mg/dl (70-99); Sodium 138 mmol/L (135-145); eGFR > 60.00
[2023-10-18 09:01] LABS: Urine Albumin 2+ (Neg - Trace); Urine Bilirubin 1+ (Negative); Urine Character Clear (Clear); Urine Color Yellow; Urine Glucose Negative (Negative); Urine Ketone Trace (Negative); Urine Leukocyte Trace (Negative); Urine Nitrite Negative (Negative); Urine Occult Blood Negative (Negative); Urine Specific Gravity 1.025 (<1.030); Urine Urobilinogen Negative (Neg - 1+)
[2023-10-18] MEDS: Pyridium 200 MG PO (09:08)
[2023-10-18 09:13] LABS: Urine Squamous Cell 26-30 /LPF (Few)
[2023-10-18 09:14] LABS: Urine Bacteria Moderate (Negative)
[2023-10-18 10:25] LABS: % Eosinophils 1.6 % (0-6); % Immature Granulocytes 0.4 % (0-0.5); % Lymphocytes 16.1 % (20.5-51.1); % Monocytes 7.2 % (1.7-9.3); % Neutrophils 73.7 % (42.2-75.2); Absolute Basophils 0.1 10^3/uL (0-0.2); Absolute Eosinophils 0.2 10^3/uL (0-0.7); Absolute Immature Granulocytes 0.1 10^3/uL (0-0.05); Absolute Lymphocytes 1.9 10^3/uL (1.2-3.4); Absolute Monocytes 0.8 10^3/uL (0.1-0.6); Absolute Neutrophils 8.5 10^3/uL (1.4-6.5); Hematocrit 42.1 % (37.0-47.0); Hemoglobin 14.3 g/dL (12.0-16.0); Mean Corpuscular Hgb 28.7 pg (27.0-31.0); Mean Corpuscular Volume 84.5 fL (81.0-99.0); Mean Platelet Volume 10.3 fL (7.4-10.4); Nucleated Red Blood Cells % 0 %; Platelet Count 277 10^3/uL (130-400); Red Blood Cell Count 4.98 10^6/uL (4.20-5.40); Red Cell Dist. Width 14.2 % (11.5-14.5); White Blood Cell Count 11.5 10^3/uL (4.8-10.8)
[2023-10-18] MEDS: DITROPAN 5 MG PO (10:43)
[2023-10-18 11:02] VITALS: BP 120/74
[2023-10-18] MEDS: OMNICEF 300 MG PO (12:06)
== END 2023-10-18 12:15 | disposition home or self-care (01) ==
LOC: EMR 05:57
PROVIDERS: EMERGENCY PHYSICIAN Emergency Medicine; FAMILY PHYSICIAN Physician Assistant Medical
DX: R30.0 Dysuria (principal); N39.0 Urinary tract infection, site not specified; R19.7 Diarrhea, unspecified; K21.9 Gastro-esophageal reflux disease without esophagitis; I10 Essential (primary) hypertension; E03.9 Hypothyroidism, unspecified; E78.00 Pure hypercholesterolemia, unspecified; F41.8 Other specified anxiety disorders; E06.3 Autoimmune thyroiditis; E21.3 Hyperparathyroidism, unspecified; Z82.49 Family history of ischemic heart disease and other diseases of the circulatory system; Z87.442 Personal history of urinary calculi; Z90.49 Acquired absence of other specified parts of digestive tract; Z90.710 Acquired absence of both cervix and uterus
CPT/HCPCS: 99284; 74176; 80048; 81003; 81015; 85025; 87086

== ENCOUNTER → 2023-10-21 17:42 | Outpatient (REF) | payer MEDICARE, BC, SELFPAY ==
[2023-10-21 20:42] LABS: Urine Albumin Negative (Neg - Trace); Urine Bilirubin Negative (Negative); Urine Character Clear (Clear); Urine Color Yellow; Urine Glucose Negative (Negative); Urine Ketone Negative (Negative); Urine Leukocyte Negative (Negative); Urine Nitrite Negative (Negative); Urine Occult Blood Negative (Negative); Urine Specific Gravity 1.025 (<1.030); Urine Urobilinogen Negative (Neg - 1+)
== END ==
LOC: CLAB 17:42
PROVIDERS: ATTENDING PHYSICIAN Urology
DX: N39.0 Urinary tract infection, site not specified (principal)
CPT/HCPCS: 81003; 87086

== ENCOUNTER → 2023-12-05 08:45 | Outpatient (REF) | payer MEDICARE, BC, SELFPAY ==
[2023-12-05 09:24] LABS: % Basophils 1.4 % (0-2); % Eosinophils 3.6 % (0-6); % Immature Granulocytes 0.3 % (0-0.5); % Lymphocytes 19.4 % (20.5-51.1); % Monocytes 8.2 % (1.7-9.3); % Neutrophils 67.1 % (42.2-75.2); Absolute Basophils 0.1 10^3/uL (0-0.2); Absolute Eosinophils 0.3 10^3/uL (0-0.7); Absolute Lymphocytes 1.7 10^3/uL (1.2-3.4); Absolute Monocytes 0.7 10^3/uL (0.1-0.6); Absolute Neutrophils 5.9 10^3/uL (1.4-6.5); Hematocrit 40.8 % (37.0-47.0); Hemoglobin 13.7 g/dL (12.0-16.0); Mean Corp Hgb Conc. 33.6 g/dL (33.0-37.0); Mean Corpuscular Hgb 29.3 pg (27.0-31.0); Mean Corpuscular Volume 87.4 fL (81.0-99.0); Mean Platelet Volume 9.1 fL (7.4-10.4); Nucleated Red Blood Cells % 0 %; Platelet Count 379 10^3/uL (130-400); Red Blood Cell Count 4.67 10^6/uL (4.20-5.40); Red Cell Dist. Width 14.5 % (11.5-14.5); White Blood Cell Count 8.8 10^3/uL (4.8-10.8)
[2023-12-05 09:52] LABS: ALT (SGPT) 42 U/L (0-35); AST (SGOT) 39 U/L (14-36); Albumin 4.4 g/dl (3.5-5.0); Alkaline Phosphatase 104 U/L (38-126); Blood Urea Nitrogen 19 mg/dl (7-17); Calcium 9.6 mg/dl (8.4-10.2); Chloride 104 mmol/L (98-107); Glucose 98 mg/dl (70-99); HDL Cholesterol 39 mg/dl; Potassium 3.9 mmol/L (3.5-5.1); Sodium 144 mmol/L (135-145); Triglyceride 148 mg/dl (10-149); Very Low Density Lipoprotein 29 mg/dl (0-30)
[2023-12-05 10:01] LABS: Carbon Dioxide 25 mmol/L (22-30); LDL Cholesterol, Calculated 75 mg/dl; Total Cholesterol 143 mg/dl (50-199); Total Protein 6.9 g/dl (6.3-8.2); eGFR > 60.00
[2023-12-05 10:21] LABS: TSH 2.26 uIU/ml (0.47-4.68)
[2023-12-05 11:40] LABS: Intact PTH 107.5 pg/ml (13.6-85.8)
== END ==
LOC: REG 08:45
PROVIDERS: ATTENDING PHYSICIAN Internal Medicine Endocrinology, Diabetes & Metabolism; FAMILY PHYSICIAN Physician Assistant Medical
DX: E04.1 Nontoxic single thyroid nodule (principal); E03.8 Other specified hypothyroidism; E06.3 Autoimmune thyroiditis; E78.2 Mixed hyperlipidemia; I10 Essential (primary) hypertension; Z86.39 Personal history of other endocrine, nutritional and metabolic disease
CPT/HCPCS: 36415; 80053; 80061; 83970; 84436; 84443; 85025

== ENCOUNTER 2023-12-20 14:35 | Emergency (ER) | payer MEDICARE, BC, SELFPAY ==
[2023-12-20 14:37] VITALS: BP 137/87
--- NOTE | 2023-12-20 15:37 | ED.GENMED ---
History of Present Illness
<Billy Mayorga MD, Resident - Last Filed: 12/20/23 19:31>
General
Chief Complaint: Abdominal Pain
Source: patient
Time Seen by Provider: 12/20/23 15:36
Travel History
Have you traveled to any high risk areas for coronavirus over the past 14 days?: No
Have you had any contact with someone who has COVID-19?: No
Do you have any symptoms of coronavirus? Fever > 100 degrees, chills, cough, shortness of breath, sore throat, loss of taste or smell, muscle aches, or headache?: No
History of Present Illness
History of Present Illness:
Lisa Jamison, 73-year-old female, has been experiencing progressive RUQ pain for the past few days. The pain is intermittent and worse after she has a meal. She has also had nausea and fatigue over the past couple of days. She recently saw
Dr. Petty for this who noted increased liver enzymes; she was recommended to go to the emergency to get an ultrasound. Denies diarrhea, constipation, change in bowel habits or dark stools. Denies recent illnesses, changes to her medications or any
other symptoms. Of note, she was treated for acute sinusitis 2 weeks ago with azithromycin.
Past History
<Billy Mayorga MD, Resident - Last Filed: 12/20/23 19:31>
Past History
ED Past Medical History: GERD, HTN, Hypercholesterolemia, Hypothyroidism (Hashimotos), Psychiatric (depression) and Other (Diverticulitis, polyps, interstitial cystitis, kidney stones, Nathaniel's thyroiditis, hyperparathyroid); Negative IDDM or
NIDDM
ED Past Surgical History: Cholecystectomy, Gynecological (Hysterectomy) and Other (bilateral milk duct removal of the breasts); Negative Appendectomy
Patient has exhibited threatening behavior?: No
Social History
Tobacco: Non-smoker
Alcohol: None
Drug: None
Personal:
Living: with family
Employment: Employed
Family History
Family History: Hypertension
Review of Systems
<Billy Mayorga MD, Resident - Last Filed: 12/20/23 19:31>
Review of Systems
All Other Systems: Not applicable
Constitutional: Reports no symptoms
EENT: Reports no symptoms
Respiratory: Reports no symptoms
Cardiac: Reports no symptoms
ABD/GI: Reports abdominal pain (RUQ), nausea and anorexia; Denies vomiting, diarrhea, bloody stools or black stools
: Reports no symptoms
Musculoskeletal: Reports no symptoms
Skin: Reports no symptoms
Neurological: Reports no symptoms
Endocrine: Reports no symptoms
Hematologic/Lymphatic: Reports no symptoms
Psychiatric: Reports no symptoms
Phy Exam
<Billy Mayorga MD, Resident - Last Filed: 12/20/23 19:31>
General Physical Exam
General Presentation: well appearing and no apparent distress
General Skin: warm and dry
General Habitus: normal
General Mental: alert
General Hydration: appears well hydrated
ENT Exam
ENT Exam: EOMI, pharynx normal, neck supple and normocephalic
Eye Exam
Eye Exam: PERRL, cornea clear and conjunctiva normal
Cardiovascular Exam
Cardiovascular Exam: regular rate/rhythm, no edema, no murmur and normal peripheral pulses
Pulmonary Exam
Pulmonary Exam: lungs clear, no respiratory distress, no rales, no crackles, no rhonchi, no stridor, no wheezing and no cough
Gastrointestinal Exam
Gastrointestinal Exam: normal bowel sounds, soft, no organomegaly, no pulsatile mass, non distended, no cva tenderness and tender (RUQ)
Neurological Exam
Neurological Exam: alert, oriented x3, no motor deficits and speech normal
Musculoskeletal Exam
Musculoskeletal Exam: full ROM and no edema
Skin Exam
Skin Exam: normal color, warm/dry, no rash and no petechia
Psychiatric Exam
Psychiatric Exam: normal mood/affect
Course
<Billy Mayorga MD, Resident - Last Filed: 12/20/23 19:31>
Orders/Labs/Results
Orders:
Orders
12/20/23 15:55
US Abdomen Complete/Upper Urgent
Comment:
Reason For Exam: RUQ pain
12/20/23 16:13
0.9% Sodium Chloride 1000 ml [Nss] 1,000 ml IV BOLUS
Ondansetron Injectable [Zofran] 4 mg IV NOW STA
12/20/23 16:14
Ketorolac [Toradol] 15 mg IV NOW STA
12/20/23 16:16
Complete Blood Count/With Diff Urgent
Comprehensive Metabolic Panel Urgent
Lipase Urgent
12/20/23 16:17
Free T4 Urgent
Comment: ADD ON
TSH Reflex To Free T4 Urgent
12/20/23 17:26
Add On- LAB Urgent
Tests Added?: T4
12/20/23 18:32
CR Chest - 2 Views Urgent
Comment:
Reason For Exam: R cp
Abnormal Lab Results
12/20/23
16:16
WBC 10.9 H 10^3/uL
(4.8-10.8)
Abs Immat Gran (auto) 0.1 H 10^3/uL
(0-0.05)
Absolute Neuts (auto) 7.6 H 10^3/uL
(1.4-6.5)
Absolute Monos (auto) 0.7 H 10^3/uL
(0.1-0.6)
Immature Gran % 0.6 H %
(0-0.5)
Lymphocytes % 18.4 L %
(20.5-51.1)
12/20/23 16:16
12/20/23 16:16
Vital Signs
Initial and Last Documented VS:
Initial Vital Signs
Temp Pulse Resp BP Pulse Ox
99 F 82 16 137/87 97
12/20/23 14:37 12/20/23 14:37 12/20/23 14:37 12/20/23 14:37 12/20/23 14:37
Last Documented Vital Signs
Temp Pulse Resp BP Pulse Ox
97.9 F 74 14 123/78 100
12/20/23 16:00 12/20/23 18:00 12/20/23 18:00 12/20/23 18:00 12/20/23 18:00
<Jose Jameson, DO - Last Filed: 12/20/23 19:22>
Orders/Labs/Results
Orders:
Orders
12/20/23 15:55
US Abdomen Complete/Upper Urgent
Comment:
Reason For Exam: RUQ pain
12/20/23 16:13
0.9% Sodium Chloride 1000 ml [Nss] 1,000 ml IV BOLUS
Ondansetron Injectable [Zofran] 4 mg IV NOW STA
12/20/23 16:14
Ketorolac [Toradol] 15 mg IV NOW STA
12/20/23 16:16
Complete Blood Count/With Diff Urgent
Comprehensive Metabolic Panel Urgent
Lipase Urgent
12/20/23 16:17
Free T4 Urgent
Comment: ADD ON
TSH Reflex To Free T4 Urgent
12/20/23 17:26
Add On- LAB Urgent
Tests Added?: T4
12/20/23 18:32
CR Chest - 2 Views Urgent
Comment:
Reason For Exam: R cp
Abnormal Lab Results
12/20/23
16:16
WBC 10.9 H 10^3/uL
(4.8-10.8)
Abs Immat Gran (auto) 0.1 H 10^3/uL
(0-0.05)
Absolute Neuts (auto) 7.6 H 10^3/uL
(1.4-6.5)
Absolute Monos (auto) 0.7 H 10^3/uL
(0.1-0.6)
Immature Gran % 0.6 H %
(0-0.5)
Lymphocytes % 18.4 L %
(20.5-51.1)
12/20/23 16:16
12/20/23 16:16
Vital Signs
Initial and Last Documented VS:
Initial Vital Signs
Temp Pulse Resp BP Pulse Ox
99 F 82 16 137/87 97
12/20/23 14:37 12/20/23 14:37 12/20/23 14:37 12/20/23 14:37 12/20/23 14:37
Last Documented Vital Signs
Temp Pulse Resp BP Pulse Ox
97.9 F 74 14 123/78 100
12/20/23 16:00 12/20/23 18:00 12/20/23 18:00 12/20/23 18:00 12/20/23 18:00
<Billy Mayorga MD, Resident - Last Filed: 12/20/23 19:31>
MDM/Problems Addressed
MDM/Problems Addressed:
LFTs were within normal limits. Blood work unremarkable otherwise. Vitals have remained stable.
<Jose Jameson DO - Last Filed: 12/20/23 19:22>
MDM/Problems Addressed
MDM/Problems Addressed:
LFTs were within normal limits. Blood work unremarkable otherwise. Vitals have remained stable.
Abdominal pain
<Jose Jameson DO - Last Filed: 12/20/23 19:22>
*Radiology
Radiology exam reviewed: radiology read reviewed
*Pulse Oximetry
Patient hypoxic: no
*Critical Care Note
Total Time (30-74mins, 75-104mins- exclusive of procedures): Not Applicable
Data Reviewed
Source: patient
Further Testing Considered But Not Given:
Consider CT of the patient has had multiple previous CTs. Labs benign despite ongoing symptoms
ED Attending Note
<Billy Mayorga MD, Resident - Last Filed: 12/20/23 19:31>
-
Portions of this chart may have been created with voice recognition software.� Occasional wrong word or��sound alike� substitutions may have occurred due to the inherent limitations of voice recognition software.
<Jose Jameson DO - Last Filed: 12/20/23 19:22>
ED Attending Note
Patient seen and examined by attending physician: Yes
I performed a history and physical exam of patient and discussed management with resident, I reviewed resident's note and agree with documented findings and plan of care.: Yes
ED Attending Note:
This is 73-year-old female presents with persistent right upper quadrant abdominal pain. Patient states it also comes into her right chest wall. She saw GI who advised her to have an ultrasound. She was told that her liver function tests were
abnormal. Patient denies fevers or shortness of breath. No injury. Is slightly worse when she eats. Also slightly worse when she moves. Exam: Mild tenderness to the right upper quadrant. Mild tenderness to right lateral chest wall. Lungs
clear. No respiratory distress. Assessment and plan: Ultrasound and labs completely normal. Symptoms have been ongoing. Chest x-ray normal. Will recommend close outpatient follow-up.
Discharge Plan
Departure
Patient Disposition: Home (Routine Discharge)
Date of Disposition: 12/20/23
Time of Disposition: 19:17
Patient with high blood pressure during this ER visit?: No
Condition: Good
Discharge Problem:
Abdominal pain
Instructions: Acid Reflux and GERD in Adults (DC), Abdominal Pain
Prescriptions:
New
pantoprazole 40 mg tablet,delayed release (DR/EC)
40 mg PO DAILY 30 Days Qty: 30 0RF
No Action
alprazolam 1 MG tablet
1 mg PO HS
Patient Comments:
09/21/2023: last filled 09/21/23, 90 tabs for 90 days from [facility]
levothyroxine 88 MCG tablet
88 mcg PO DAILY
acetaminophen 325 MG tablet
650 mg PO Q6HPRN PRN (Reason: mild pain/ fever>100.5F) 0RF
atorvastatin 40 MG tablet
40 mg PO QPM
Pepcid Complete 10-800-165 mg Tablet,Chewable
1 tab PO HS
zolpidem 6.25 mg tablet,ext release multiphase
6.25 mg PO HSPRN PRN (Reason: sleep)
Patient Comments:
09/21/2023: last filled 09/21/23, 30 tabs for 30 days from [id number]
cholecalciferol (vitamin D3) 50 mcg (2,000 unit) Tablet
50 mcg PO DAILY
dexlansoprazole 60 mg capsule,biphase delayed releas
60 mg PO DAILY
nifedipine [Procardia XL] 30 mg tablet extended release 24hr
30 mg PO DAILY Qty: 30 0RF
vancomycin [Vancocin] 125 mg capsule
125 mg PO QID Qty: 35 0RF
dicyclomine 10 mg capsule
10 mg PO TID PRN (Reason: abdominal pain/Spasm) Qty: 14 0RF
cefdinir 300 mg capsule
300 mg PO BID 5 Days Qty: 10 0RF
oxybutynin chloride 5 mg tablet
5 mg PO BID 7 Days Qty: 14 0RF
phenazopyridine [Pyridium] 200 mg tablet
200 mg PO TID PRN (Reason: Pain) Qty: 6 0RF
Referrals:
Lisa Fernandez PA-C [Family Provider] -
Activity Restrictions/Additional Instructions:
Your blood work including the liver enzymes were within normal limits. Ultrasound was normal. Please call your cryptologic supervisor and schedule a follow-up. Also follow-up with your primary. Return immediately for worsening pain, shortness of
breath, fevers or any other concerns.
Interventions
Interventions:
*Risk Screen - Suicide Last Done: 12/20/23 14:39
*General Assessment Last Done: 12/20/23 14:36
*Neglect/Abuse Screening Last Done: 12/20/23 14:39
ED- Fall Risk Assessment Last Done: 12/20/23 14:36
*Nursing Disposition Last Done: 12/20/23 19:21
PS-Wqzijb-Ntqreykhrf Assessment Last Done: 12/20/23 14:36
Discharge Date and Time
Print Language: SAO TOMEAN
[2023-12-20 15:55] VITALS: BP 128/75
[2023-12-20 16:00] VITALS: BP 128/75
[2023-12-20] MEDS: TORADOL 15 MG IV (16:24)
[2023-12-20] MEDS: ZOFRAN 4 MG IV (16:24)
[2023-12-20 16:26] LABS: % Eosinophils 4.1 % (0-6); % Immature Granulocytes 0.6 % (0-0.5); % Lymphocytes 18.4 % (20.5-51.1); % Monocytes 6.2 % (1.7-9.3); % Neutrophils 69.7 % (42.2-75.2); Absolute Basophils 0.1 10^3/uL (0-0.2); Absolute Eosinophils 0.4 10^3/uL (0-0.7); Absolute Immature Granulocytes 0.1 10^3/uL (0-0.05); Absolute Monocytes 0.7 10^3/uL (0.1-0.6); Absolute Neutrophils 7.6 10^3/uL (1.4-6.5); Hemoglobin 13.8 g/dL (12.0-16.0); Mean Corp Hgb Conc. 33.7 g/dL (33.0-37.0); Mean Corpuscular Hgb 29.3 pg (27.0-31.0); Mean Platelet Volume 9.3 fL (7.4-10.4); Nucleated Red Blood Cells % 0 %; Platelet Count 295 10^3/uL (130-400); Red Blood Cell Count 4.71 10^6/uL (4.20-5.40); White Blood Cell Count 10.9 10^3/uL (4.8-10.8)
[2023-12-20] MEDS: NSS 1000 IV (16:26)
[2023-12-20 16:42] LABS: ALT (SGPT) 31 U/L (0-35); AST (SGOT) 32 U/L (14-36); Albumin 4.4 g/dl (3.5-5.0); Alkaline Phosphatase 125 U/L (38-126); Blood Urea Nitrogen 14 mg/dl (7-17); Calcium 9.8 mg/dl (8.4-10.2); Carbon Dioxide 29 mmol/L (22-30); Chloride 104 mmol/L (98-107); Glucose 99 mg/dl (70-99); Lipase 51 U/L (23-300); Potassium 3.6 mmol/L (3.5-5.1); Sodium 142 mmol/L (135-145); Total Bilirubin 1.1 mg/dl (0.2-1.3); Total Protein 6.9 g/dl (6.3-8.2); eGFR > 60.00
[2023-12-20 17:00] VITALS: BP 103/48
[2023-12-20 17:14] LABS: TSH Reflex To Free T4 1.08 uIU/ml (0.47-4.68)
[2023-12-20 18:00] VITALS: BP 123/78
[2023-12-20 18:01] LABS: Free T4 1.26 ng/dl (0.78-2.19)
== END 2023-12-20 19:30 | disposition home or self-care (01) ==
LOC: EMR 14:35
PROVIDERS: Student in an Organized Health Care Education/Training Program; EMERGENCY PHYSICIAN Emergency Medicine; FAMILY PHYSICIAN Physician Assistant Medical
DX: R10.11 Right upper quadrant pain (principal)
CPT/HCPCS: 99284; 96374; 96375; 96361; 71046; 76700; 80053; 83690; 84439; 84443; 85025

== ENCOUNTER 2024-05-12 09:03 | Outpatient (RCR) | payer MEDICARE, BC, SELFPAY | END 2024-05-12 23:59 | disposition home or self-care (01) | LOC: RPT 09:03 | PROVIDERS: ATTENDING PHYSICIAN Orthopaedic Surgery; FAMILY PHYSICIAN Physician Assistant Medical | DX: M17.0 Bilateral primary osteoarthritis of knee (principal); Z73.6 Limitation of activities due to disability; M62.81 Muscle weakness (generalized); M25.562 Pain in left knee; M25.561 Pain in right knee; R26.89 Other abnormalities of gait and mobility | CPT/HCPCS: 97110; 97116; 97162 ==

== ENCOUNTER → 2024-06-04 07:14 | Outpatient (REF) | payer MEDICARE, BC, SELFPAY ==
[2024-06-06 15:20] LABS: Fat, Fecal - Neutral Normal (Normal); Fat, Fecal - Split Normal (Normal)
== END ==
LOC: REG 07:14
PROVIDERS: ATTENDING PHYSICIAN Internal Medicine Gastroenterology; FAMILY PHYSICIAN Physician Assistant Medical
DX: R19.7 Diarrhea, unspecified (principal)
CPT/HCPCS: 82653; 82705; 83993; 87045; 87046; 87324; 87427; 87449; 89055

== ENCOUNTER 2024-06-14 10:45 | Emergency (ER) | payer MEDICARE, BC, SELFPAY ==
[2024-06-14 10:55] VITALS: BP 141/86
[2024-06-14 11:39] VITALS: BMI 36.6
[2024-06-14 11:41] VITALS: BP 129/72
[2024-06-14 11:43] LABS: % Basophils 1.1 % (0-2); % Eosinophils 3.3 % (0-6); % Immature Granulocytes 0.7 % (0-0.5); % Lymphocytes 18.1 % (20.5-51.1); % Monocytes 6.5 % (1.7-9.3); % Neutrophils 70.3 % (42.2-75.2); Absolute Basophils 0.1 10^3/uL (0-0.2); Absolute Eosinophils 0.3 10^3/uL (0-0.7); Absolute Immature Granulocytes 0.1 10^3/uL (0-0.05); Absolute Lymphocytes 1.7 10^3/uL (1.2-3.4); Absolute Monocytes 0.6 10^3/uL (0.1-0.6); Absolute Neutrophils 6.7 10^3/uL (1.4-6.5); Hematocrit 42.6 % (37.0-47.0); Hemoglobin 14.3 g/dL (12.0-16.0); Mean Corp Hgb Conc. 33.6 g/dL (33.0-37.0); Mean Corpuscular Hgb 28.9 pg (27.0-31.0); Mean Corpuscular Volume 86.1 fL (81.0-99.0); Mean Platelet Volume 8.9 fL (7.4-10.4); Nucleated Red Blood Cells % 0 %; Platelet Count 293 10^3/uL (130-400); Red Blood Cell Count 4.95 10^6/uL (4.20-5.40); Red Cell Dist. Width 14.1 % (11.5-14.5); White Blood Cell Count 9.6 10^3/uL (4.8-10.8)
[2024-06-14] MEDS: ATIVAN 1 MG IV (11:52)
[2024-06-14] MEDS: TORADOL 15 MG IV (11:53)
[2024-06-14 12:02] VITALS: BP 131/73
[2024-06-14 12:05] LABS: ALT (SGPT) 40 U/L (0-35); AST (SGOT) 34 U/L (14-36); Albumin 4.5 g/dl (3.5-5.0); Alkaline Phosphatase 148 U/L (38-126); Blood Urea Nitrogen 15 mg/dl (7-17); Calcium 9.8 mg/dl (8.4-10.2); Carbon Dioxide 28 mmol/L (22-30); Chloride 106 mmol/L (98-107); Estimated Creatinine Clearance 103 ml/min; Glucose 91 mg/dl (70-99); Potassium 4.1 mmol/L (3.5-5.1); Sodium 143 mmol/L (135-145); Total Protein 7.1 g/dl (6.3-8.2); eGFR > 60.00
[2024-06-14] MEDS: OMNIPAQUE 50 ML PO (12:08)
--- NOTE | 2024-06-14 12:54 | ED.GENMED ---
History of Present Illness
General
Chief Complaint: Abdominal Pain
Source: patient
Exam Limitations: none
Time Seen by Provider: 06/14/24 11:13
Nursing documentation reviewed up to this point in time: agreed with
History of Present Illness
History of Present Illness:
74-year-old female with medical history of previous diverticulitis, hypertension hyperlipidemia presenting to the emergency department from her GI doctor's office for assessment of left lower quadrant abdominal pain over the past few months. Has
had associated nausea no fevers no chest pain or shortness of breath no changes in urination.
Past History
Past History
ED Past Medical History: GERD, HTN, Hypercholesterolemia, Hypothyroidism (Hashimotos), Psychiatric (depression) and Other (Diverticulitis, polyps, interstitial cystitis, kidney stones, Nathaniel's thyroiditis, hyperparathyroid); Negative IDDM or
NIDDM
ED Past Surgical History: Cholecystectomy, Gynecological (Hysterectomy) and Other (bilateral milk duct removal of the breasts); Negative Appendectomy
Patient has exhibited threatening behavior?: No
Social History
Tobacco: Non-smoker
Alcohol: None
Drug: None
Personal:
Living: with family
Employment: Employed
Family History
Family History: Hypertension
Review of Systems
Review of Systems
Allergies reviewed?: Yes
All Other Systems: ROS reviewed and negative except as documented in HPI and ROS
Phy Exam
Physical Exam
Physical Exam:
GENERAL: Alert , in no apparent distress
EYE: pupils equal and reactive
NECK: Supple, no significant adenopathy.
ENT: o/p clr, mmm.
CARDIAC: Regular rate and rhythm .
LUNGS: Clear breath sounds bilaterally, no acute respiratory distress, no wheezes/rales/rhonchi
ABDOMEN: Left lower quadrant abdominal pain to palpation otherwise remainder soft, without focal tenderness, no r/g, no cvat
NEUROLOGICAL: Alert and oriented, no focal neuro deficits
SKIN: Warm and dry, skin intact.
MUSCULOSKELETAL: No edema, well perfused.
PSYCH: Normal and appropriate interaction.
Course
Orders/Labs/Results
Orders:
Orders
06/14/24 11:36
Complete Blood Count/With Diff Urgent
Comprehensive Metabolic Panel Urgent
06/14/24 11:39
Ketorolac [Toradol] 15 mg IV NOW STA
06/14/24 11:45
Lorazepam [Ativan] 0.5 mg IV NOW STA
06/14/24 11:47
Lorazepam [Ativan] 1 mg IV NOW STA
06/14/24 12:03
CT Abd/pel W Iv And Oral Contr Urgent
Comment:
Reason For Exam: llq pain
Iohexol [Omnipaque] See Protocol PO NOW STA
06/14/24 14:02
Urinalysis Reflex To Culture Urgent
Date Specimen was Collected: 06/14/24
Time Specimen was Collected: 13:58
Urine Microscopic Reflex Cult Urgent
Urine Culture Urgent
STEPHANIE Source: U
Specimen Description:
Date Specimen was Collected: 06/14/24
Time Specimen was Collected: 13:58
Abnormal Lab Results
06/14/24 06/14/24
11:36 14:02
Abs Immat Gran (auto) 0.1 H 10^3/uL
(0-0.05)
Absolute Neuts (auto) 6.7 H 10^3/uL
(1.4-6.5)
Immature Gran % 0.7 H %
(0-0.5)
Lymphocytes % 18.1 L %
(20.5-51.1)
Creatinine 0.5 L mg/dL
(0.6-1.0)
ALT 40 H U/L
(0-35)
Alkaline Phosphatase 148 H U/L
(38-126)
Leukocyte Esterase Rfl 1+ A
(Negative)
Urine Bacteria (Reflex) Few A
(Negative)
06/14/24 11:36
06/14/24 11:36
Vital Signs
Initial and Last Documented VS:
Initial Vital Signs
Temp Pulse Resp BP Pulse Ox
98.6 F 86 16 141/86 98
06/14/24 10:55 06/14/24 10:55 06/14/24 10:55 06/14/24 10:55 06/14/24 10:55
Last Documented Vital Signs
Temp Pulse Resp BP Pulse Ox
98.6 F 86 16 131/73 98
06/14/24 10:55 06/14/24 10:55 06/14/24 10:55 06/14/24 12:02 06/14/24 12:02
MDM/Problems Addressed
MDM/Problems Addressed:
74-year-old female presenting to the emergency department today with concerns of left lower quadrant abdominal pain over the past few months worsening recently. Associated intermittent diarrhea and nausea no vomiting no fevers vital signs normal on
arrival. Patient with reproducible pain to left lower quadrant. CT scan ordered for further assessment. This was communicated with the patient's GI doctor Dr. Petty that recommends IV and oral contrast CT scan. CT scan without emergent
findings. No evidence of diverticulitis. Labs unremarkable. Patient stable for outpatient management return precautions given. Case was again discussed with patient's GI doctor.
*Critical Care Note
Total Time (30-74mins, 75-104mins- exclusive of procedures): Not Applicable
ED Attending Note
-
Portions of this chart may have been created with voice recognition software.� Occasional wrong word or��sound alike� substitutions may have occurred due to the inherent limitations of voice recognition software.
Discharge Plan
Departure
Patient Disposition: Home (Routine Discharge)
Date of Disposition: 06/14/24
Time of Disposition: 16:23
Patient with high blood pressure during this ER visit?: No
Condition: Good
Covid-19: Not Applicable
Discharge Problem:
Abdominal pain, lower
Instructions: Abdominal Pain
Prescriptions:
New
dicyclomine 20 mg tablet
20 mg PO QID PRN (Reason: abdominal pain) Qty: 14 0RF
loperamide [Imodium A-D] 2 mg tablet
2 mg PO Q6H PRN (Reason: loose stool) Qty: 7 0RF
No Action
alprazolam 1 MG tablet
1 mg PO HS
Patient Comments:
09/21/2023: last filled 09/21/23, 90 tabs for 90 days from [facility]
levothyroxine 88 MCG tablet
88 mcg PO DAILY
acetaminophen 325 MG tablet
650 mg PO Q6HPRN PRN (Reason: mild pain/ fever>100.5F) 0RF
atorvastatin 40 MG tablet
40 mg PO QPM
Pepcid Complete 10-800-165 mg Tablet,Chewable
1 tab PO HS
zolpidem 6.25 mg tablet,ext release multiphase
6.25 mg PO HSPRN PRN (Reason: sleep)
Patient Comments:
09/21/2023: last filled 09/21/23, 30 tabs for 30 days from [id number]
cholecalciferol (vitamin D3) 50 mcg (2,000 unit) Tablet
50 mcg PO DAILY
dexlansoprazole 60 mg capsule,biphase delayed releas
60 mg PO DAILY
nifedipine [Procardia XL] 30 mg tablet extended release 24hr
30 mg PO DAILY Qty: 30 0RF
vancomycin [Vancocin] 125 mg capsule
125 mg PO QID Qty: 35 0RF
dicyclomine 10 mg capsule
10 mg PO TID PRN (Reason: abdominal pain/Spasm) Qty: 14 0RF
cefdinir 300 mg capsule
300 mg PO BID 5 Days Qty: 10 0RF
oxybutynin chloride 5 mg tablet
5 mg PO BID 7 Days Qty: 14 0RF
phenazopyridine [Pyridium] 200 mg tablet
200 mg PO TID PRN (Reason: Pain) Qty: 6 0RF
pantoprazole 40 mg tablet,delayed release (DR/EC)
40 mg PO DAILY 30 Days Qty: 30 0RF
Referrals:
Lisa Fernandez PA-C [Family Provider] -
Activity Restrictions/Additional Instructions:
You came to the emergency department today with concerns of lower abdominal discomfort. Here you have a reassuring assessment. Please take the prescribed occasions to help with symptoms and follow-up closely with your GI doctor. Return for any
worsening, new or concerning symptoms.
Interventions
Interventions:
*Risk Screen - Suicide Last Done: 06/14/24 10:55
*General Assessment Last Done: 06/14/24 11:38
*Neglect/Abuse Screening Last Done: 06/14/24 10:55
*ED- Fall Risk Assessment Last Done: 06/14/24 11:38
*ED COVID-19 Vaccine History Last Done: 06/14/24 11:38
JZ-Vjpekq-Fgroesdjrn Assessment Last Done: 06/14/24 11:34
Discharge Date and Time
Print Language: GUINEAN
[2024-06-14 14:10] LABS: Urine Albumin Negative (Neg - Trace); Urine Bilirubin Negative (Negative); Urine Character Clear (Clear); Urine Color Yellow; Urine Glucose Negative (Negative); Urine Ketone Negative (Negative); Urine Leukocyte 1+ (Negative); Urine Nitrite Negative (Negative); Urine Occult Blood Negative (Negative); Urine Specific Gravity 1.025 (<1.030); Urine Urobilinogen Negative (Neg - 1+)
[2024-06-14 14:43] LABS: Urine Hyaline Cast 0-2 /LPF (0-2); Urine Mucus Moderate
[2024-06-14 14:44] LABS: Urine Bacteria Few (Negative); Urine Red Blood Cell 0-2 /HPF (0-2)
== END 2024-06-14 17:00 | disposition home or self-care (01) ==
LOC: EMR 10:45
PROVIDERS: Physician Assistant; EMERGENCY PHYSICIAN Emergency Medicine; FAMILY PHYSICIAN Physician Assistant Medical
DX: R10.32 Left lower quadrant pain (principal); R11.0 Nausea; E03.9 Hypothyroidism, unspecified; E78.00 Pure hypercholesterolemia, unspecified; I10 Essential (primary) hypertension; Z90.49 Acquired absence of other specified parts of digestive tract; Z87.19 Personal history of other diseases of the digestive system
CPT/HCPCS: 96374; 96375; 99284; 74177; 80053; 81003; 81015; 85025; 87086; Q9967

== ENCOUNTER → 2024-07-07 13:39 | Outpatient (REF) | payer MEDICARE, BC, SELFPAY | LOC: HWRCS 13:39 | PROVIDERS: ATTENDING PHYSICIAN Nurse Practitioner; FAMILY PHYSICIAN Physician Assistant Medical | DX: R00.2 Palpitations (principal); I10 Essential (primary) hypertension | CPT/HCPCS: 93306 ==

== ENCOUNTER 2024-07-21 06:26 | Day surgery (SDC) | payer MEDICARE, BC, SELFPAY | END 2024-07-21 10:06 | disposition home or self-care (01) | LOC: GI 06:26 | PROVIDERS: ATTENDING PHYSICIAN Internal Medicine Gastroenterology | DX: D12.2 Benign neoplasm of ascending colon (principal); D12.4 Benign neoplasm of descending colon; K57.30 Diverticulosis of large intestine without perforation or abscess without bleeding; K64.8 Other hemorrhoids; R19.7 Diarrhea, unspecified; R10.32 Left lower quadrant pain | CPT/HCPCS: 45380; 88305 ==

== ENCOUNTER → 2024-09-01 18:39 | Outpatient (REF) | payer MEDICARE, BC, SELFPAY | LOC: WDC 18:39 | PROVIDERS: ATTENDING PHYSICIAN Internal Medicine | DX: Z12.31 Encounter for screening mammogram for malignant neoplasm of breast (principal) | CPT/HCPCS: 77063; 77067 ==

== ENCOUNTER → 2024-10-05 15:28 | Outpatient (REF) | payer MEDICARE, BC, SELFPAY ==
[2024-10-05 16:10] LABS: Urine Character Clear (Clear)
[2024-10-05 16:19] LABS: Urine Squamous Cell 16-20 /LPF (Few)
[2024-10-05 16:22] LABS: Urine White Cell >100 /HPF (0-5)
== END ==
LOC: CLAB 15:28
PROVIDERS: ATTENDING PHYSICIAN Physician Assistant
DX: N39.0 Urinary tract infection, site not specified (principal)
CPT/HCPCS: 81003; 81015; 87086

== ENCOUNTER 2024-10-12 06:08 | Emergency (ER) | payer MEDICARE, BC, SELFPAY ==
[2024-10-12 06:10] VITALS: BP 113/78
[2024-10-12 06:28] LABS: Hematocrit 41.9 % (37.0-47.0); Hemoglobin 13.8 g/dL (12.0-16.0); Mean Corp Hgb Conc. 32.9 g/dL (33.0-37.0); Mean Corpuscular Volume 85.9 fL (81.0-99.0); Nucleated Red Blood Cells % 0 %; Platelet Count 322 10^3/uL (130-400); Red Cell Dist. Width 14.3 % (11.5-14.5)
[2024-10-12 08:19] LABS: Urine Character Clear (Clear)
[2024-10-12 08:25] LABS: Urine Squamous Cell 16-20 /LPF (Few)
--- NOTE | 2024-10-12 09:10 | ED.GENMED ---
History of Present Illness
General
Chief Complaint: Flank Pain
Source: patient
Exam Limitations: none
Time Seen by Provider: 10/12/24 08:51
History of Present Illness
History of Present Illness:
74-year-old female presents with onset of left lower back pain that radiates to the front last night. This was preceded by urinary symptoms. She was having difficulty urinating and was thought initially to have a UTI. She was started on Bactrim
by her primary doctor. She finished a weeks worth of Bactrim but there was no relief and she was told later that her urine culture was negative. She notes nausea. She also notes a severe bout of constipation recently. No other complaints at this
time.
Past History
Past History
ED Past Medical History: GERD, HTN, Hypercholesterolemia, Hypothyroidism ([place]), Psychiatric (depression) and Other (Diverticulitis, polyps, interstitial cystitis, kidney stones, Nathaniel's thyroiditis, hyperparathyroid); Negative IDDM or
NIDDM
ED Past Surgical History: Cholecystectomy, Gynecological (Hysterectomy) and Other (bilateral milk duct removal of the breasts); Negative Appendectomy
Patient has exhibited threatening behavior?: No
Social History
Tobacco: Non-smoker
Alcohol: None
Drug: None
Personal:
Living: with family
Employment: Employed
Family History
Family History: Hypertension
Phy Exam
Physical Exam
Physical Exam:
General: Well-appearing female no acute respiratory distress
HEENT: Normocephalic atraumatic
Heart: Regular rate and rhythm
Lungs: Clear no wheeze
Abdomen is soft nontender nondistended
Extremities: No cyanosis
Course
Orders/Labs/Results
Orders:
Orders
10/12/24 06:22
Complete Blood Count/With Diff Urgent
10/12/24 08:04
Urinalysis Reflex To Culture Urgent
Date Specimen was Collected: 10/12/24
Time Specimen was Collected: 07:50
Urine Microscopic Reflex Cult Urgent
Urine Culture Urgent
STEPHANIE Source: U
Specimen Description:
Date Specimen was Collected: 10/12/24
Time Specimen was Collected: 07:50
10/12/24 09:10
CT Abd/pel Without Iv Or Oral Urgent
Comment:
Reason For Exam: left flank pain
0.9% Sodium Chloride 500 ml [Nss] 500 ml IV BOLUS
Ketorolac [Toradol] 15 mg IV NOW STA
Ondansetron Injectable [Zofran] 4 mg IV NOW STA
10/12/24 10:10
Comprehensive Metabolic Panel Urgent
Comment: REDRAW
Lipase Urgent
Comment: REDRAW
Abnormal Lab Results
10/12/24 10/12/24 10/12/24
06:22 08:04 10:10
WBC 11.0 H 10^3/uL
(4.8-10.8)
MCHC 32.9 L g/dL
(33.0-37.0)
Absolute Neuts (auto) 7.3 H 10^3/uL
(1.4-6.5)
Absolute Monos (auto) 0.8 H 10^3/uL
(0.1-0.6)
Lymphocytes % 19.4 L %
(20.5-51.1)
Chloride 108 H mmol/L
(98-107)
Total Bilirubin 1.4 H mg/dl
(0.2-1.3)
ALT 41 H U/L
(0-35)
Alkaline Phosphatase 158 H U/L
(38-126)
Leukocyte Esterase Rfl 1+ A
(Negative)
Urine RBC 3-6 A /HPF
(0-2)
Urine Bacteria (Reflex) Moderate A
(Negative)
10/12/24 06:22
10/12/24 10:10
Vital Signs
Initial and Last Documented VS:
Initial Vital Signs
Temp Pulse Resp BP Pulse Ox
98.4 F 81 22 113/78 96
10/12/24 06:10 10/12/24 06:10 10/12/24 06:10 10/12/24 06:10 10/12/24 06:10
Last Documented Vital Signs
Temp Pulse Resp BP Pulse Ox
98.4 F 76 22 123/64 96
10/12/24 06:10 10/12/24 11:22 10/12/24 06:10 10/12/24 11:22 10/12/24 09:13
MDM/Problems Addressed
Differential Diagnosis Includes:
Left flank pain with urinary symptoms. Consider renal colic versus UTI versus pyelonephritis versus constipation versus musculoskeletal flank pain
Check urine labs hydrate order Toradol Zofran. CT pending
*Pulse Oximetry
SaO2: 96
Oxygen Mode of Delivery: Room air
Patient hypoxic: no
*Critical Care Note
Total Time (30-74mins, 75-104mins- exclusive of procedures): Not Applicable
Update Note
Update Note:
CT negative for acute intra-abdominal process.
Suspect musculoskeletal flank pain. No obvious sign of infection. Will prescribe symptomatic treatment. Stable for discharge. UA with squamous cells likely contaminated specimen. Just finished a course of Bactrim. No indication for any further
antibiotics
ED Attending Note
-
Portions of this chart may have been created with voice recognition software.� Occasional wrong word or��sound alike� substitutions may have occurred due to the inherent limitations of voice recognition software.
Discharge Plan
Departure
Patient Disposition: Home (Routine Discharge)
Date of Disposition: 10/12/24
Time of Disposition: 12:07
Patient with high blood pressure during this ER visit?: No
Discharge Problem:
Acute flank pain
Instructions: Flank Pain (DC)
Prescriptions:
New
prednisone 20 mg tablet
40 mg PO DAILY 5 Days Qty: 10 0RF
cyclobenzaprine 5 mg tablet
5 mg PO TID PRN (Reason: spasm) Qty: 10 0RF
No Action
alprazolam 1 MG tablet
1 mg PO HS
Patient Comments:
09/21/2023: last filled 09/21/23, 90 tabs for 90 days from [facility]
levothyroxine 88 MCG tablet
88 mcg PO DAILY
acetaminophen 325 MG tablet
650 mg PO Q6HPRN PRN (Reason: mild pain/ fever>100.5F) 0RF
atorvastatin 40 MG tablet
40 mg PO QPM
Pepcid Complete 10-800-165 mg Tablet,Chewable
1 tab PO HS
zolpidem 6.25 mg tablet,ext release multiphase
6.25 mg PO HSPRN PRN (Reason: sleep)
Patient Comments:
09/21/2023: last filled 09/21/23, 30 tabs for 30 days from [id number]
cholecalciferol (vitamin D3) 50 mcg (2,000 unit) Tablet
50 mcg PO DAILY
dexlansoprazole 60 mg capsule,biphase delayed releas
60 mg PO DAILY
nifedipine [Procardia XL] 30 mg tablet extended release 24hr
30 mg PO DAILY Qty: 30 0RF
vancomycin [Vancocin] 125 mg capsule
125 mg PO QID Qty: 35 0RF
dicyclomine 10 mg capsule
10 mg PO TID PRN (Reason: abdominal pain/Spasm) Qty: 14 0RF
cefdinir 300 mg capsule
300 mg PO BID 5 Days Qty: 10 0RF
oxybutynin chloride 5 mg tablet
5 mg PO BID 7 Days Qty: 14 0RF
phenazopyridine [Pyridium] 200 mg tablet
200 mg PO TID PRN (Reason: Pain) Qty: 6 0RF
pantoprazole 40 mg tablet,delayed release (DR/EC)
40 mg PO DAILY 30 Days Qty: 30 0RF
dicyclomine 20 mg tablet
20 mg PO QID PRN (Reason: abdominal pain) Qty: 14 0RF
loperamide [Imodium A-D] 2 mg tablet
2 mg PO Q6H PRN (Reason: loose stool) Qty: 7 0RF
Referrals:
UNKNOWN - PT DOES,NOT KNOW [Family Provider]
Activity Restrictions/Additional Instructions:
Take prescribed medicine as directed. Turn if worse otherwise follow-up with your doctor
Interventions
Interventions:
*Risk Screen - Suicide Last Done: 10/12/24 06:10
*General Assessment Last Done: 10/12/24 06:10
*Neglect/Abuse Screening Last Done: 10/12/24 06:10
*ED- Fall Risk Assessment Last Done: 10/12/24 06:10
*ED COVID-19 Vaccine History Last Done: 10/12/24 06:10
VC-Piwxon-Loiouechyj Assessment Last Done: 10/12/24 09:15
ED-Female Genitourinary Assessment Last Done: 10/12/24 09:15
Discharge Date and Time
Print Language: KOSOVAN
[2024-10-12 09:14] VITALS: BMI 35.7
[2024-10-12] MEDS: NSS 500 IV (10:07)
[2024-10-12] MEDS: TORADOL 15 MG IV (10:07)
[2024-10-12] MEDS: ZOFRAN 4 MG IV (10:08)
[2024-10-12 10:38] LABS: ALT (SGPT) 41 U/L (0-35); AST (SGOT) 34 U/L (14-36); Albumin 4.5 g/dl (3.5-5.0); Alkaline Phosphatase 158 U/L (38-126); Blood Urea Nitrogen 17 mg/dl (7-17); Calcium 9.6 mg/dl (8.4-10.2); Carbon Dioxide 24 mmol/L (22-30); Chloride 108 mmol/L (98-107); Estimated Creatinine Clearance 87 ml/min; Glucose 94 mg/dl (70-99); Lipase 47 U/L (23-300); Potassium 4.4 mmol/L (3.5-5.1); Sodium 139 mmol/L (135-145); Total Protein 7.3 g/dl (6.3-8.2); eGFR > 60.00
[2024-10-12 11:22] VITALS: BP 123/64
== END 2024-10-12 12:55 | disposition home or self-care (01) ==
LOC: EMR 06:08
PROVIDERS: Emergency Medicine; EMERGENCY PHYSICIAN Emergency Medicine
DX: R10.9 Unspecified abdominal pain (principal); K21.9 Gastro-esophageal reflux disease without esophagitis; I10 Essential (primary) hypertension; E78.00 Pure hypercholesterolemia, unspecified; E03.9 Hypothyroidism, unspecified; E06.3 Autoimmune thyroiditis; E21.3 Hyperparathyroidism, unspecified; F32.A Depression, unspecified; Z82.49 Family history of ischemic heart disease and other diseases of the circulatory system; Z87.440 Personal history of urinary (tract) infections; Z87.442 Personal history of urinary calculi; Z90.49 Acquired absence of other specified parts of digestive tract; Z90.710 Acquired absence of both cervix and uterus
CPT/HCPCS: 99284; 96374; 96375; 96361; 74176; 80053; 81003; 81015; 83690; 85025; 87086

== ENCOUNTER → 2024-10-19 08:00 | Outpatient (REF) | payer MEDICARE, BC, SELFPAY ==
[2024-10-19 09:51] LABS: Hematocrit 40.1 % (37.0-47.0); Hemoglobin 12.8 g/dL (12.0-16.0); Mean Corp Hgb Conc. 31.9 g/dL (33.0-37.0); Mean Corpuscular Volume 87.7 fL (81.0-99.0); Nucleated Red Blood Cells % 0 %; Platelet Count 294 10^3/uL (130-400); Red Cell Dist. Width 14.2 % (11.5-14.5)
[2024-10-19 12:07] LABS: Vitamin D, 25-OH*** 37.6 ng/mL (30-80)
[2024-10-19 12:29] LABS: TSH 2.95 uIU/ml (0.47-4.68)
== END ==
LOC: REG 08:00
PROVIDERS: ATTENDING PHYSICIAN Internal Medicine Endocrinology, Diabetes & Metabolism; FAMILY PHYSICIAN Physician Assistant Medical
DX: E21.3 Hyperparathyroidism, unspecified (principal); E06.3 Autoimmune thyroiditis; L65.9 Nonscarring hair loss, unspecified
CPT/HCPCS: 36415; 82306; 84439; 84443; 85025

== ENCOUNTER → 2024-10-22 07:10 | Outpatient (REF) | payer MEDICARE, BC, SELFPAY ==
[2024-10-22 08:14] LABS: HDL Cholesterol 38 mg/dl; LDL Cholesterol, Calculated 73 mg/dl; Very Low Density Lipoprotein 34 mg/dl (0-30)
== END ==
LOC: REG 07:10
PROVIDERS: ATTENDING PHYSICIAN Internal Medicine Endocrinology, Diabetes & Metabolism; FAMILY PHYSICIAN Physician Assistant Medical
DX: E78.2 Mixed hyperlipidemia (principal)
CPT/HCPCS: 36415; 80061

== ENCOUNTER → 2024-11-04 06:37 | Outpatient (REF) | payer MEDICARE, BC, SELFPAY | LOC: RAD 06:37 | PROVIDERS: ATTENDING PHYSICIAN Physician Assistant Medical | DX: M79.671 Pain in right foot (principal); M79.672 Pain in left foot | CPT/HCPCS: 93922; 93925 ==

== ENCOUNTER → 2024-12-30 12:46 | Outpatient (REF) | payer MEDICARE, BC, SELFPAY | LOC: RAD 12:46 | PROVIDERS: ATTENDING PHYSICIAN Internal Medicine Endocrinology, Diabetes & Metabolism; FAMILY PHYSICIAN Physician Assistant Medical | DX: E04.1 Nontoxic single thyroid nodule (principal) | CPT/HCPCS: 76536 ==